=== PATIENT | female | born 1935 | race Caucasian/White ===

== ENCOUNTER 2018-01-22 16:20 | Inpatient (IN) ==
[2018-01-22] MEDS ORDERED: NS 1,000 ML IV ONE ×2 (16:34→17:48)
--- OUTSIDE RECORDS SUMMARY | 2018-01-22 16:40 | External Medical Summary | Referral Summary ---
:1935 Author Organization [facility] Address [address] [place] [address] [place] [id number] Care Team Providers Name Role Phone Devendra Gomez Primary Care Physician Encounter VC Date(s): 12/31/16 - 12/31/16 [facility] [address] [place] [phone] [place] Discharge Disposition: 01-Home or Self Care Attending Physician: Devendra Gomez MD Admitting Physician: Devendra Gomez MD Vital Signs Most recent to oldest [Reference Range]: 1 Temperature Tympanic [36.6-38.1 degC] 37.2 degC (12/31/16 11:11 AM) Peripheral Pulse Rate [60-100 bpm] 63 bpm (12/31/16 11:11 AM) Blood Pressure [90-140/60-90 mmHg] 136/80 mmHg (12/31/16 11:11 AM) Problem List Condition Effective Dates Status Health Status Informant Radiculopathy of cervical Active spine(Confirmed) Compression fracture(Confirmed) Active Excessive daytime sleepiness/lack of 04/20/09 Active energy(Confirmed) DDD (degenerative disc disease), Active lumbosacral(Confirmed) Depression(Confirmed) Active skin conditions(Confirmed) Active 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 (disorder)(Confirmed) GERD (gastroesophageal reflux Active disease)(Confirmed) Low back pain (finding)(Confirmed) Active Lumbosacral spondylosis without Active myelopathy(Confirmed) Neck pain (finding)(Confirmed) Active Osteoarthritis(Confirmed) Active Osteoporosis(Confirmed) Active Parkinson's disease(Confirmed) Active Scoliosis(Confirmed) Active Spinal stenosis in cervical region Active (disorder)(Confirmed) Spinal stenosis of lumbar region Active (disorder)(Confirmed) Thoracic or lumbosacral neuritis or Active radiculitis, unspecified(Confirmed) Chicken pox(Confirmed) Active Difficulty in walking(Confirmed) Active Allergies, Adverse Reactions, Alerts No Known Medication Allergies Medications amantadine 100 mg oral capsule 1 caps, Oral, BID Start Date: 08/12/14 Status: OrderedamLODIPine 10 mg oral tablet 10 mg 1 tabs, Oral, BID, 1/2 tab or 5 mg daily, 0 Refill(s) Start Date: 07/16/16 Status: Orderedcarbidopa-levodopa 50 mg-200 mg oral tablet, extended release See Instructions, TAKE ONE TABLET BY MOUTH FIVE TIMES DAILY, # 150 unknown unit , 2 Refill(s), eRx: [facility] [id number], TAKING ONE TABLET BY MOUTH FIVE TIMES A DAY. 7AM, 9AM, NOON, 4PM AND 10PM. Start Date: 03/09/15 Status: OrderedColace 100 mg oral capsule 100 mg 1 caps, Oral, Daily, # 20 caps, 0 Refill(s) Start Date: 07/16/16 Status: OrderedDULoxetine 30 mg oral delayed release capsule See Instructions, TAKE 2 CAPSULE BY MOUTH EVERY DAY, # 60 tabs, 0 Refill(s), Pharmacy: [facility] [id number], TAKE 2 CAPSULE BY MOUTH EVERY DAY Start Date: 08/02/16 Status: Orderedlisinopril 10 mg oral tablet 10 mg 1 tabs, Oral, Daily, 0 Refill(s) Start Date: 07/16/16 Status: OrderedNorco 5 mg-325 mg oral tablet 1-2 tabs, Oral, q6hr, as needed for pain, Fax to [facility] [phone], # 60 tabs, 0 Refill(s) Start Date: 07/26/16 Status: Orderedomeprazole 20 mg oral delayed release capsule See Instructions, TAKE 1 CAPSULE BY MOUTH EVERY DAY, # 90 caps, eRx: [facility] [id number] Start Date: 12/30/16 Status: OrderedProlia 60 mg/mL subcutaneous solution 60 mg, SubCutaneous, q6mo, # 1 mL, 0 Refill(s), other reason (Rx) Start Date: 12/08/15 Stop Date: 12/07/16 Status: OrderedSenna Plus 50 mg-8.6 mg oral tablet 2 tabs, Oral, BID, 0 Refill(s) Start Date: 07/16/16 Status: OrderedZofran ODT 4 mg oral tablet, disintegrating 4 mg 1 tabs, Oral, q4hr, Nausea or Vomiting | as needed for nausea/vomiting, # 10 tabs, 0 Refill(s),other reason (Rx) Start Date: 07/18/16 Status: Ordered Results No data available for this section Immunizations Given and Recorded Vaccine Date Status Refusal Reason influenza virus vaccine, inactivated 10/03/15 Recorded influenza virus vaccine, live 08/20/12 Given zoster vaccine live 08/03/07 Recorded Procedures Procedure Date Related Diagnosis Body Site Intramedullary nailing of femur1 07/10/16 right L4-5/L5-S1 transforaminal 07/15/13 Rt L4-5/L5-S1 transforaminal 03/30/13 Rt L4-5/L5-S1 transforaminal 12/22/12 hydrodistention 06/26/12 S/P cystoscopy 06/26/12 SLT laser vaporization 06/26/12 urethral calibration and dilation 06/26/12 S/P colonoscopy2 07/27/03 Hysterectomy S/P bilateral cataract extraction S/P tonsillectomy and adenoidectomy 1Right hip intramedullary nailing for three-part intertrochanteric hip [id number] Social History Social History Type Response Smoking Status Never smoker Assessment and Plan No data available for this section"
--- OUTSIDE RECORDS SUMMARY | 2018-01-22 16:40 | External Medical Summary | Continuity of Care Document ---
:1935 Author Organization [facility] Care Team Providers Name Role Phone [employer] Unavailable Unavailable
[2018-01-22] MEDS ORDERED: CEFTRIAXONE (ER USE ONLY) 1 GM in NS 100 ML IV ONE (18:22)
--- NOTE | 2018-01-22 18:45 | Emergency Department Report ---
General Adult HPI - General Chief complaint: Shortness of Breath/Dyspnea Stated complaint: difficulty breathing Time Seen by Provider: 01/22/18 16:27 - History of Present Illness HPI narrative: 82-year-old female brought in by EMS for acute dyspnea. Patient has been on hospice and has DO NOT RESUSCITATE orders. Hospice nurse was at home with the patient and son and father both insisted she be brought in for evaluation. EMS discussed with them that there was a DO NOT RESUSCITATE and the patient had desires not to have any intervention not just DO NOT RESUSCITATE, but family was concerned. Therefore patient was transported ER. She has history of Parkinson's which is severe and is been immovable in bed for the last 3-4 days. She required 90% O2 on nonrebreather during transport to maintain sats greater than 88%. She has not seen a medical provider for the last month at least. There is some question as to who her actual primary care provider is. She is nonverbal and does not communicate with us at all. - Related Data Home Medications Medication Instructions Recorded Confirmed Docusate Sodium [Stool Softener] 100 mg PO HS #0 07/10/16 01/22/18 Amlodipine [Norvasc] 5 mg PO BID 09/30/17 01/22/18 Carbidopa/Levodopa CR 50/200Mg 1 tab PO QID 09/30/17 01/22/18 [Sinemet Cr] Hyoscyamine Drops [Levsin] 0.125 mg PO QID PRN 09/30/17 01/22/18 Lisinopril [Prinivil] 10 mg PO DAILY 09/30/17 01/22/18 Sennosides [Senna] 2 tab PO BID 09/30/17 01/22/18 Duloxetine HCl 30 mg PO BID 01/22/18 01/22/18 Meloxicam 7.5 mg PO HS 01/22/18 01/22/18 Previous Rx's Medication Instructions Recorded Hydrocodone/APAP 5/325 [Winter 1 - 2 tab PO Q6H PRN #20 09/30/17 5/325] Allergies Allergy/AdvReac Type Severity Reaction Status Date / Time No Known Allergies Allergy Verified 01/22/18 16:56 Review of Systems Limitations: ROS unobtainable due to patient's medical condition PFS Patient Stated Medical History Parkinson's Disease Yes Other HEENT Yes: wears glasses Hypertension Yes Other Musculoskeletal Yes: right hip fx Surgical History: unknown - Social History Smoking status: Former smoker Substance use type: does not use Current occupational status: retired Physical Exam - Limitations Limitations: altered mental status - General General appearance: obtunded, cachectic - Normal Exams: Eyes:: No scleral icterus, irritation, or foreign bodies noted Abdomen:: Bowel sounds positive, soft, non-tender, non-distended, no hepatosplenomegaly, masses or bruits noted - Respiratory Respiratory exam: Present: crackles (right side greater than left) - Cardiovascular Cardiovascular exam: Present: tachycardia - Neurological Exam Neurological exam: Present: other (unable to evaluate, patient is nonresponsive) . Absent: alert, oriented X3 - Psychiatric Psychiatric exam: Present: other (patient nonresponsive.) Course Vital Signs Pulse Rate 143 H 01/22/18 16:20 Respiratory Rate 44 H 01/22/18 16:20 Pulse Oximetry 92 01/22/18 16:20 Temperature 101.9 F H 01/22/18 16:25 Pulse Rate 123 H 01/22/18 17:16 Respiratory Rate 41 H 01/22/18 17:16 Blood Pressure 154/127 H 01/22/18 17:16 Pulse Oximetry 90 01/22/18 17:00 Medical Decision Making - [facility] Narrative Medical decision making narrative: Patient presented with a heart rate of 140, given 1 L bolus of normal saline immediately on arrival and rate diminished to 118. With another 1 L of fluid, heart rate is decreased to 108. Sepsis workup initiated. However patient has active DO NOT RESUSCITATE with hospice report that she wanted no intervention whatsoever. No family was present initially while workup was begun. Initial lactate returned at 4.8, THIS WAS AN ERROR. Blood and sat and was run latent, immediate redraw was ordered and lactate was 2.8. Returned at greater than 16 with 18 bands. Patient's BUN is 61 with creatinine of 2.1. Sodium 161. I spoke with Dr. Delarosa, to attempt to resolve the treatment question. Ultimately we decided that patient will be admitted to treat the infection, definitely states DO NOT RESUSCITATE. I discussed with the patient's son that we are unlikely to have success due to the severity of infection and hypernatremia as well as other underlying pre-existing conditions. This was discussed with Dr. Terry, who is on-call for tele-hospitalist. He agreed to admit the patient. Patient is placed on Rocephin and Zithromax. We did add influenza nasal swab. DO NOT RESUSCITATE is certified. Patient was also changed to LR at 100 at ml per hour. A total of 30 mL/kg and has bolus was accomplished. I spent greater than 45 minutes in critical care of this patient with fluid resuscitation, sepsis management, consult with other physicians immediate with family. - Lab Data Result diagrams: 01/22/18 16:32 01/22/18 16:32 Lab Results 01/22/18 01/22/18 01/22/18 Range/Units 16:32 16:32 16:50 WBC 16.2 H (4.5-11.0) T/MM3 RBC 4.78 (4.00-5.20) M/MM3 Hgb 13.8 (12-16) GM/DL Hct 44.5 (36-46) % MCV 93.1 (80-100) UM3 MCH 28.9 (26-34) UUG MCHC 31.0 (31-37) GM/DL RDW Std Deviation 45.1 (36.9-50.2) FL Plt Count 542 H (130-400) T/MM3 MPV 9.9 (9.4-12.4) UM3 Immature Gran % (Auto) Not performed Neut % (Auto) Not performed Lymph % (Auto) Not performed Marshall % (Auto) Not performed Eos % (Auto) Not performed Baso % (Auto) Not performed Neut # (Auto) Not performed Lymph # (Auto) Not performed Marshall # (Auto) Not performed Eos # (Auto) Not performed Baso # (Auto) Not performed Abs Immat Gran (auto) Not performed Neutrophils % (Manual) 63.0 (33-66) % Band Neutrophils % 18.0 H (0-6) % Lymphocytes % (Manual) 11.0 L (23-45) % Monocytes % (Manual) 8.0 (0-9.0) % Neutrophils # (Manual) 10.2 H (1.8-7.7) T/MM3 Band Neutrophils # 2.9 T/MM3 Lymphocytes # (Manual) 1.8 (1-4.8) T/MM3 Monocytes # (Manual) 1.3 H (0-0.8) T/MM3 Nucleated RBCs 1 RBC Morph Comment Normal Turbidity < 20 (0-20) Sodium 161 H* (134-144) MEQ/L Potassium 3.8 (3.6-5) MEQ/L Chloride 119 H (98-107) MEQ/L Carbon Dioxide 20 L (22-30) MEQ/L Anion Gap 22 H (5-15) meq/L BUN 61.0 H* (7-17) MG/DL Creatinine 2.1 H (0.7-1.2) mg/dL GFR Calculation 23 BUN/Creatinine Ratio 29 H (6-26) RATIO Glucose 203 H (65-110) MG/DL Calculated Osmolality 331 H (261-280) MOSM/KG Calcium 9.6 (8.4-10.2) MG/DL Total Bilirubin 0.70 (0.20-1.30) MG/DL Icterus Index < 2 (0-7) AST 65 H (14-36) U/L ALT 16 (1-35) U/L Alkaline Phosphatase 158 H (38-126) U/L NT-Pro-B Natriuret Pep 3580 H (0-175) pg/mL Total Protein 8.0 (6.3-8.2) g/dL Albumin 4.1 (3.5-5.0) g/dL Globulin 3.9 H (2.4-3.6) G/DL Albumin/Globulin Ratio 1.1 (1.1-2.2) RATIO Plasma Lactate 4.8 H* 2.8 H (0.6-2.2) MMOL/L Specimen Hemolysis < 15 (0-25) - Radiology Data Radiology results reviewed: Yes: I reviewed the patient's radiology results. Disposition Clinical Impression: Pneumonia, Sepsis, Hypernatremia [place]position: 02 [place] [facility] Condition: Stable Prescriptions: No Action Docusate Sodium [Stool Softener] 100 mg PO HS #0 Carbidopa/Levodopa CR 50/200Mg [Sinemet Cr] 1 tab PO QID Sennosides [Senna] 2 tab PO BID Lisinopril [Prinivil] 10 mg PO DAILY Hyoscyamine Drops [Levsin] 0.125 mg PO QID PRN PRN Reason: Prn Orders Amlodipine [Norvasc] 5 mg PO BID Hydrocodone/APAP 5/325 [Winter 5/325] 1 - 2 tab PO Q6H PRN #20 PRN Reason: Pain Duloxetine HCl 30 mg PO BID Meloxicam 7.5 mg PO HS Referrals: Sandra Delarosa MD [Family Provider] - Time of Disposition: 19:14 - Seen By: physician
[2018-01-22] MEDS ORDERED: AZITHROMYCIN IV 500 MG in NS 250ml 250 ML IV SCH (19:15)
[2018-01-22] MEDS: LR 1,000 ML IV SCH (19:26)
--- NOTE | 2018-01-22 20:04 | History & Physical Report ---
History of Present Illness Date: 01/23/18 Chief complaint: decreased responsiveness, shortness of breath HPI: Mrs. Robledo is an 82 y/o w/ severe Parkinson's, HTN, arthritis and other medical issues who is currently cared for at home by her family as well as home hospice who is brought in by EMS today d/t decreasing responsiveness and shortness of breath. The patient was seen by hospice nurse today, and she was unresponsive and apparently not out of bed since Friday and not taking po, and patient's son and desired that EMS be contacted and that patient be transported to the ED at [facility] for evaluation. Patient in ER had temp of 101.6 F, tachycardic w/ HR in the 140s, lactate of 2.8 , Na = 161, BUN/Cr = 61/2.1, WBC =16.2 and Influenza pending; NS x 2 L given, and CXR showed likely bilateral lower lobe pneumonia so Rocephin and Azithromycin IV given in ER. Per ER physician's report, patient has a DNR and will remain a DNR per patient's family's request however patient's family would like for the pneumonia to be treated and patient to be admitted to the hospital. Patient on oxygen therapy as she was noted to be hypoxic. Currently 6 L/min HF NC place over the mouth as she is a mouth breather. Patient's fluids were changed from NS to LR which is running currently at 100 cc /hour. Patient to be admitted to the Hospitalist service for further evaluation and management. History obtained from ER physician and notes, as patient is minimally responsive and patient's family left the ER to return home once patient was accepted to the medical floor. Review of Systems ROS unobtainable: due to mental status Past Medical History Medical History Updates: HTN, arthritis, purported End-stage Parkinson's, contractures Surgical History: unknown Family History: Unable to Obtain - Social History Smoking status: Former smoker Medications Home Medications Medication Instructions Recorded Confirmed Type Docusate Sodium [Stool Softener] 100 mg PO HS #0 07/10/16 01/22/18 History Amlodipine [Norvasc] 5 mg PO BID 09/30/17 01/22/18 History Carbidopa/Levodopa CR 50/200Mg 1 tab PO QID 09/30/17 01/22/18 History [Sinemet Cr] Hydrocodone/APAP 5/325 [[place] 1 - 2 tab PO Q6H PRN #20 09/30/17 01/22/18 Rx 5/325] Hyoscyamine Drops [Levsin] 0.125 mg PO QID PRN 09/30/17 01/22/18 History Lisinopril [Prinivil] 10 mg PO DAILY 09/30/17 01/22/18 History Sennosides [Senna] 2 tab PO BID 09/30/17 01/22/18 History Duloxetine HCl 30 mg PO BID 01/22/18 01/22/18 History Meloxicam 7.5 mg PO HS 01/22/18 01/22/18 History Allergies Allergy/AdvReac Type Severity Reaction Status Date / Time No Known Allergies Allergy Verified 01/22/18 16:56 Exam Vital Signs: Temperature 101.9 F H 01/22/18 16:25 Pulse Rate 123 H 01/22/18 17:16 Respiratory Rate 41 H 01/22/18 17:16 Blood Pressure 154/127 H 01/22/18 17:16 Pulse Oximetry 90 01/22/18 17:00 Telemetry Rhythm: Sinus Tachycardia Height/Weight/BMI: Height 1.57 m Weight 49.8 kg - Constitutional Present: cachectic, somnolent Comments: Patient minimally responsive - does not open eyes but does blink and moves slightly to tactile stimulation - Routine HEENT Exam Head: Present: atraumatic ENT: Present: mucous membranes dry - Routine Neck Exam Absent: JVD - Routine Respiratory Exam Present: decreased breath sounds, prolonged expiratory phase, crackles (at the bases bilaterally) - Routine Cardiovascular Exam Present: tachycardia - Routine Abdominal Exam Present: non distended - Routine Extremities Exam Absent: cyanosis, clubbing, edema - Routine Psychiatric Exam Present: unable to assess Comments: Patient's neck chronically in extension and to the left Results - Labs CBC & Chem 7: 01/23/18 05:08 01/23/18 05:08 Microbiology Results: Microbiology 01/22/18 16:53 Midline Blood Culture - Preliminary Culture Initiated - Results Pending 01/22/18 16:50 Midline Blood Culture - Preliminary Culture Initiated - Results Pending Assessment and Plan Assessment and Plan: Assessment: 1) Acute Sepsis POA 2) Acute Bilateral Pneumonia 3) Acute Hypoxia 4) Acute Encephalopathy - currently unresponsive - has been at home prior to presentation to ER 5) Acute Kidney injury in setting of CKD 6) Hypernatremia - likely acute dehyration w/ poor free water intake over past week or more 7) Severe Parkinson's disease - was on home hospice - however patient's family desires treatment of pneumonia and hospitalization 8) HTN history 9) H/o Arthritis / Contractures Plan: Admit to Hospitalist service Received 30 cc/kg bolus of NS - now fluids changed to LR running at 100 cc/hour Labs in the AM Oxygen therapy to keep sats > 90% RT consult Social Work consult Patient remains DNR Blood Cultures pending SCDs Rocephin 1gram IV q 24 hours Azithromycin 500mg IV q 24 hours Protonix 40mg IV q 24 hours Tylenol suppository prn as directed MSO4 prn as directed NPO - o/p swabs if needed DVT Prophylaxis: SCD's GI Prophylaxis: Protonix Resuscitation Status: Do Not Resuscitate - Physician Narrative Physician: Barb Blanton MD Narrative: Date: 01/23/18 Time: 1350 CC: Patient brought to the emergency room due to decreased responsiveness and increase worker breathing. HPI: 82y/o female who has severe Parkinson's and has been living at home with her and son under the care of hospice services. The hospice nurse was in the home with the family. The and son were quite worried about the patient and insisted that she be seen in the ER for further evaluation. In the emergency room she required at least 10 L by mask to maintain adequate oxygenation. Her chest x-ray showed increasing right pleural effusion with basilar airspace disease. There was a hazy infiltrate in the left base. Pneumonia could also not be excluded on the right side. She had leukocytosis and 16,200 with 18% bands, her sodium was 161 with the UN of 61 and a creatinine 2.1. she was negative for influenza a and B. Urine analysis was unremarkable. Have seen her twice today. Initially this morning it was no family available. She did not respond to me at all. This afternoon I return to her room and her son was present. She does follow most commands including bilateral handgrip. She will wiggle her toes. She will not however take a deep breath when I asked. She is non verbal. She will not yes and no and denies any significant complaints at this time. Her son was concerned that we are not feeding her. When I asked her if she was hungry she did not respond at all. He reports that he does not let her make that decision and he will just give her stuff to eat. Complain to him that if she is not participating in this eating then she is at risk of aspirating. I'm not sure he understands goals of care of hospice. She is still requiring 10 L via mask. She does have IV fluids running which I will stop at this time due to her right pleural effusion. Past medical history: Current medications: Sinemet CR 1 tablet QID Norvasc 5 mg BID Dolculax sodium 100 mg QHS duloxetine 30 mg BID Cleveland 5 mg 1 to 2 tablets Q6 hours PRN Levsin drops 0.125mg QID lisinopril 10 mg daily meloxicam 7.5 mg QHS senna 8.6 mg 2 tablets BID Allergies: no known drug allergies Medical history: severe Parkinson's lumbosacral spondylosis history of compression fracture L4 gastroesophageal reflux disease cataracts osteoarthritis osteoporosis hypertension constipation chronic pain frequent falls Surgical history: foot surgery as a Child hysterectomy cataract removal cystoscopy tonsillectomy and adenoidectomy right hip intramedullary nail Family history: mom and dad are both . Dad had problems with alcohol abuse Social history: and living with her under hospice care Former smoker ROS: Essentially Unobtainable Physical Exam: VSS: temperature 99.1, heart rate 98, respiration rate 14 with shallow respirations, blood pressure 114/65, 97% on 10 L by simple mask. Gen: awakens. Follows most commands. Non verbal Skin: warm and dry. HEENT: NC/AT PERRL, EOMI, sclera, lids and conjunctiva wnl. MMM. OP clear. Neck: Fairly rigid, No JVD, Carotids 2+ without bruits. Lungs: diminished. crackles on right. No wheezes or rhonchi Heart: regular. No murmur, rub or gallop. Abdomen: soft. NT/ND, +BS MS: Generalized muscle weakness, No edema Neuro: No apparent focal deficit but difficult to test Psy: Flat affect Assessment/Plan: 1) Acute Sepsis -Leukocytosis with bandemia, elevated lactic acid at 4.8 (trended down to 1.2 by am) -Blood cx pending 2) Acute Bilateral Pneumonia -On Rocephin and azithromycin IV -Resp therapy -Sputum cx if she can provide one -Repeat CXR in am 3) Acute Hypoxia -Likely due to effusion and PNA -STop IVF and titrate oxygen as needed -Resp therapy 4) Acute Encephalopathy - currently unresponsive - has been at home prior to presentation to ER -Multifactorial, pt with severe parkinson's. 5) Acute Kidney injury in setting of CKD -Likely dehydration -IVF given -Repeat labs in am. 6) Hypernatremia -likely acute dehyration w/ poor free water intake over past week or more 7) Severe Parkinson's disease - was on home hospice - however patient's family desires treatment of pneumonia and hospitalization -Continue her home meds if she will take po 8) HTN history -BP low normal here, hold home antihypertensives at this time 9) H/o Arthritis / Contractures 10)Prophylaxis -PPI, SCDs Hospital Course Summary Disclaimer: The visit summary below is not to be considered part of the above Progress Note.
[2018-01-22] MEDS ORDERED: MORPHINE SULFATE 2mg INJ IVP PRN (20:05)
[2018-01-22] MEDS ORDERED: ALBUTEROL 2.5mg/3ml (0.083%) NEB AEROSOL PRN (21:14)
[2018-01-23] MEDS: ACETAMINOPHEN 650 MG SUPPOSITORY PR PRN (03:07)
[2018-01-23] MEDS: LR 1,000 ML IV SCH (06:56)
[2018-01-23] MEDS: PANTOPRAZOLE 40 MG INJECTION IVP SCH (09:12)
--- NOTE | 2018-01-23 09:51 | XRay Report ---
Indication: dyspnea PROCEDURE: XR chest 1V: Encounter: Initial Comparison: July 22, 2016 Findings: Increasing right pleural effusion with right lower lobe airspace disease. There is new hazy infiltrate in the left lung base as well. No pneumothorax. Patient is rotated towards the right. Heart size is within normal limits. Impression: Increasing right pleural effusion with basilar airspace disease. Pneumonia cannot be excluded. .
[2018-01-23] MEDS: ALBUTEROL 2.5mg/3ml (0.083%) NEB AEROSOL SCH (13:09)
[2018-01-23] MEDS ORDERED: HYOSCYAMINE 0.125 MG/ML PO PRN (17:28)
[2018-01-23] MEDS ORDERED: HYDROCODONE/APAP 5mg/325mg TABLET PO PRN (17:28)
[2018-01-23] MEDS: CEFTRIAXONE 1 G in NS 100 ML IV SCH (18:58)
[2018-01-23] MEDS: SALINE FLUSH 10ml SYRINGE IVF PRN (18:58)
[2018-01-23] MEDS: AZITHROMYCIN IV 500 MG in NS 250ml 250 ML IV SCH (21:36)
[2018-01-23] MEDS: DULOXETINE 30 MG CAPSULE PO SCH (21:38)
[2018-01-23] MEDS: SENNOSIDES 8.6 MG TABLET PO SCH (21:38)
[2018-01-23] MEDS: DOCUSATE SODIUM 100 MG CAPSULE PO SCH (21:38)
[2018-01-24] MEDS: DULOXETINE 30 MG CAPSULE PO SCH ×2 (08:34→23:53)
[2018-01-24] MEDS: PANTOPRAZOLE 40 MG INJECTION IVP SCH (08:38)
[2018-01-24] MEDS: SENNOSIDES 8.6 MG TABLET PO SCH ×2 (08:38→23:53)
[2018-01-24] MEDS: SALINE FLUSH 10ml SYRINGE IVF PRN ×2 (08:39→14:17)
[2018-01-24] MEDS: ALBUTEROL/IPRATROPIUM 2.5mg-0.5mg/3ml NEB AEROSOL SCH ×3 (11:04→19:41)
--- NOTE | 2018-01-24 13:30 | Progress Note ---
- Date 01/24/18 Subjective: F/U: Septic shock, pneumonia Resting in bed. Not responsive-nonverbal. Breathing comfortably on O2 without labor. Objective Vital signs: Temperature 100.5 F H 01/24/18 11:21 Pulse Rate 98 01/24/18 11:21 Respiratory Rate 24 01/24/18 11:21 Blood Pressure 106/64 01/24/18 11:21 Pulse Oximetry 100 01/24/18 11:21 Height/Weight/BMI: Height 1.57 m Weight 50.8 kg Body Mass Index 20.6 - Constitutional Present: well nourished, well developed, average body habitus, somnolent - Routine HEENT Exam Head: Present: normocephalic, atraumatic Eye: Present: EOMI, PERRL - Routine Respiratory Exam Present: decreased breath sounds. Absent: respiratory distress - Routine Cardiovascular Exam Present: RRR, no murmur - Routine Abdominal Exam Present: soft, non distended, non tender. Absent: normoactive bowel sounds - Routine Extremities Exam Present: no edema, pulses intact. Absent: cyanosis, clubbing - Routine Musculoskeletal Exam Musculoskeletal: Present: no clubbing or cyanosis - Routine Skin Exam Present: dry, warm - Routine Neurological Exam Somnolent - Routine Psychiatric Exam Comments: Somnolent Results - Labs CBC & Chem 7: 01/24/18 04:33 01/24/18 04:33 Assessment and Plan Assessment and Plan: Assessment Sepsis shock POA Bilateral Pneumonia Acute Hypoxia Acute Encephalopathy - currently unresponsive - has been at home prior to presentation to ER Acute Kidney injury in setting of CKD Hypernatremia (POA) - likely acute dehydration w/ poor free water intake over past week or more Severe Parkinson's disease - was on home hospice - however patient's family desires treatment of pneumonia and hospitalization HTN history H/o Arthritis / Contractures Plan Sodium increasing - will start 1/2NS at 100cc/hr for hydration and to improve serum sodium. Continue Rocephin 1gram IV q 24 hours and azithromycin 500mg IV q 24 hours for pulmonary coverage. Supportive O2 as needed. MS for pain. DVT Prophylaxis: SCD's Resuscitation Status: Do Not Resuscitate - Physician Narrative Physician: Edgar Hilario MD Narrative: Date: 01/24/18 Time: 1327 Hospital Course Summary Disclaimer: The visit summary below is not to be considered part of the above Progress Note. Hospital Course: 01/23/18 Admit to Hospitalist service Received 30 cc/kg bolus of NS - now fluids changed to LR running at 100 cc/hour Labs in the AM Oxygen therapy to keep sats > 90% RT consult Social Work consult Patient remains DNR Blood Cultures pending SCDs Rocephin 1gram IV q 24 hours Azithromycin 500mg IV q 24 hours Protonix 40mg IV q 24 hours Tylenol suppository prn as directed MSO4 prn as directed NPO - o/p swabs if needed 01/24/18
[2018-01-24] MEDS: 1/2 NS 1,000 ML IV SCH (14:17)
[2018-01-24] MEDS: ACETAMINOPHEN 650 MG SUPPOSITORY PR PRN (14:24)
[2018-01-24] MEDS: CEFTRIAXONE 1 G in NS 100 ML IV SCH (18:01)
[2018-01-24] MEDS: AZITHROMYCIN IV 500 MG in NS 250ml 250 ML IV SCH (23:51)
[2018-01-24] MEDS: DOCUSATE SODIUM 100 MG CAPSULE PO SCH (23:53)
[2018-01-25] MEDS: 1/2 NS 1,000 ML IV SCH ×2 (02:05→11:27)
[2018-01-25] MEDS: ALBUTEROL/IPRATROPIUM 2.5mg-0.5mg/3ml NEB AEROSOL SCH ×4 (07:54→19:04)
[2018-01-25] MEDS: DULOXETINE 30 MG CAPSULE PO SCH ×2 (09:59→21:41)
[2018-01-25] MEDS: SENNOSIDES 8.6 MG TABLET PO SCH ×2 (09:59→21:41)
[2018-01-25] MEDS: SALINE FLUSH 10ml SYRINGE IVF PRN (10:01)
[2018-01-25] MEDS: PANTOPRAZOLE 40 MG INJECTION IVP SCH (10:01)
--- NOTE | 2018-01-25 10:12 | XRay Report ---
Indication: PNA PROCEDURE: XR chest 1V: Encounter: Initial Comparison: January 22, 2018 Findings: Continued airspace consolidation in the right lower lobe with increasing small right pleural effusion. Hazy opacities in the left lower lobe are grossly stable. No pneumothorax. Heart size and mediastinal contours are stable allowing for differences in rotation. Impression: Increasing right effusion. .
[2018-01-25] MEDS: D5W 1,000 ML IV SCH ×2 (10:35→21:40)
--- NOTE | 2018-01-25 10:48 | Progress Note ---
- Date 01/25/18 Subjective: Shantal is seen today in follow up. She is laying in bed with eyes closed. She does not arouse to verbal stimulation or touch. She continues on 0.5-1 liter of oxygen by nasal canula and does not appear to be in any distress. She remains afebrile and blood pressure has been normal. Objective Vital signs: Temperature 98.2 F 01/25/18 07:46 Pulse Rate 98 01/25/18 07:46 Respiratory Rate 16 01/25/18 07:55 Blood Pressure 125/67 01/25/18 07:46 Pulse Oximetry 96 01/25/18 10:02 Height/Weight/BMI: Height 1.57 m Weight 52.6 kg Body Mass Index 20.6 - Constitutional Present: thin - Routine HEENT Exam ENT: Present: mucous membranes dry - Routine Respiratory Exam Present: diminished air movement - Routine Cardiovascular Exam Present: RRR, S1, S2. Absent: murmur - Routine Abdominal Exam Present: soft, normoactive bowel sounds, non distended. Absent: tenderness - Routine Skin Exam Present: intact, dry, warm - Routine Neurological Exam Present: altered mental status - Routine Lymphatic Exam Lymphatic: Absent: adenopathy - Routine Psychiatric Exam Present: unable to assess Results - Labs CBC & Chem 7: 01/25/18 04:29 01/25/18 04:29 Assessment and Plan Assessment and Plan: Assessment Sepsis shock POA Bilateral Pneumonia Acute Hypoxia Acute Encephalopathy - currently unresponsive - has been at home prior to presentation to ER Acute Kidney injury in setting of CKD Hypernatremia (POA) - likely acute dehydration w/ poor free water intake over past week or more Severe Parkinson's disease - was on home hospice - however patient's family desires treatment of pneumonia and hospitalization HTN history H/o Arthritis / Contractures Plan Persistent Hypernatremia despite IV fluids Change fluid to D5W at 100ml/hr Continue with Rocephin and Azithromycin for antimicrobial coverage Continues therapeutic NPO Overall status is concerning. Likely need to discuss half-way plan with family. Possibly need to return to hospice/comfort care. DVT Prophylaxis: SCD's Resuscitation Status: Do Not Resuscitate - Time spent with patient Time with patient PN: 25 minutes - Physician Narrative Physician: Edgar Hilario MD Narrative: Date: 01/25/18 Time: 1455 Have independently interviewed and examined pt. Chart reviewed. Case discussed with nursing, pt's , and my PAINTER [employer]. Care plan developed with my supervision ; agree with above. Resting in bed. Not opening eyes, non verbal. WBC without significant decrease, sodium still elevated at 159. Lungs: decreased, shallow respirations CV: regular AB: soft flat BS decreased EXT: thin Plan: Continue IV antibiotics. Change IVF to D5W as sodium not decreasing. Speech for swallow function. Monitor lab. Overall prognosis not favorable. Hospital Course Summary Disclaimer: The visit summary below is not to be considered part of the above Progress Note. Hospital Course: 01/23/18 Admit to Hospitalist service Received 30 cc/kg bolus of NS - now fluids changed to LR running at 100 cc/hour Labs in the AM Oxygen therapy to keep sats > 90% RT consult Social Work consult Patient remains DNR Blood Cultures pending SCDs Rocephin 1gram IV q 24 hours Azithromycin 500mg IV q 24 hours Protonix 40mg IV q 24 hours Tylenol suppository prn as directed MSO4 prn as directed NPO - o/p swabs if needed 01/24 Sodium increasing - will start 1/2NS at 100cc/hr for hydration and to improve serum sodium. Continue Rocephin 1gram IV q 24 hours and azithromycin 500mg IV q 24 hours for pulmonary coverage. Supportive O2 as needed. MS for pain. 01/25 Persistent Hypernatremia despite IV fluids - Change fluid to D5W at 100ml/hr Continue with Rocephin and Azithromycin for antimicrobial coverage Continues therapeutic NPO Overall status is concerning. Likely need to discuss half-way plan with family. Possibly need to return to hospice/comfort care
[2018-01-25] MEDS: Hyoscyamine 0.125mg Sublingual tab PO PRN ×2 (11:21→17:34)
[2018-01-25] MEDS: NS FLUSH BAG 500ml IV PRN (18:09)
[2018-01-25] MEDS: CEFTRIAXONE 1 G in NS 100 ML IV SCH (18:09)
[2018-01-25] MEDS: AZITHROMYCIN IV 500 MG in NS 250ml 250 ML IV SCH (21:40)
[2018-01-25] MEDS: DOCUSATE SODIUM 100 MG CAPSULE PO SCH (21:41)
[2018-01-26] MEDS: ALBUTEROL/IPRATROPIUM 2.5mg-0.5mg/3ml NEB AEROSOL SCH ×4 (07:29→19:35)
[2018-01-26] MEDS: D5W 1,000 ML IV SCH ×2 (09:37→20:42)
[2018-01-26] MEDS: PANTOPRAZOLE 40 MG INJECTION IVP SCH (09:37)
[2018-01-26] MEDS: SALINE FLUSH 10ml SYRINGE IVF PRN ×3 (09:38→18:07)
[2018-01-26] MEDS: SENNOSIDES 8.6 MG TABLET PO SCH ×2 (09:38→20:54)
[2018-01-26] MEDS: DULOXETINE 30 MG CAPSULE PO SCH ×2 (09:38→20:54)
--- NOTE | 2018-01-26 11:23 | Progress Note ---
- Date 01/26/18 Subjective: Shantal is seen this morning while laying in bed. She does arouse and says "hi" during examination however does not make eye contact. She continues on 1 liter of oxygen by n/c. Remains mostly non-verbal. Objective Vital signs: Temperature 98.8 F 01/26/18 07:36 Pulse Rate 89 01/26/18 07:36 Respiratory Rate 26 H 01/26/18 07:36 Blood Pressure 133/80 01/26/18 07:36 Pulse Oximetry 96 01/26/18 11:00 Height/Weight/BMI: Height 1.57 m Weight 51.5 kg Body Mass Index 20.6 - Constitutional Present: mild distress, well nourished, well developed - Routine HEENT Exam ENT: Present: mucous membranes dry - Routine Respiratory Exam Present: CTA bilaterally, diminished air movement - Routine Cardiovascular Exam Present: RRR, S1, S2. Absent: murmur - Routine Abdominal Exam Present: soft, normoactive bowel sounds, non distended. Absent: tenderness - Routine Skin Exam Present: intact, dry, warm - Routine Neurological Exam Present: altered mental status - Routine Lymphatic Exam Lymphatic: Absent: adenopathy - Routine Psychiatric Exam Present: cooperative Results - Labs CBC & Chem 7: 01/26/18 04:35 01/26/18 04:35 Assessment and Plan Assessment and Plan: Assessment Sepsis shock POA Bilateral Pneumonia Acute Hypoxia Acute Encephalopathy - currently unresponsive - has been at home prior to presentation to ER Acute Kidney injury in setting of CKD Hypernatremia (POA) - likely acute dehydration w/ poor free water intake over past week or more Severe Parkinson's disease - was on home hospice - however patient's family desires treatment of pneumonia and hospitalization HTN history H/o Arthritis / Contractures Plan Sodium has begun to slightly trend down- 164 Continue with IV fluids for hydration- D5W Speech consult to evaluate swallow Continue with Rocephin and Azithromycin for pulmonary antimicrobial coverage Continue to follow labs- Leukocytosis is trending down- WBC 14.7 Wean O2 as able DVT Prophylaxis: SCD's Resuscitation Status: Do Not Resuscitate - Time spent with patient Time with patient PN: 25 minutes - Physician Narrative Physician: Edgar Hilario MD Narrative: Date: 01/26/18 Time: 1430 Have independently interviewed and examined pt. Chart reviewed. Case discussed with CM and my [employer]. Care plan developed with my supervision; agree with above. Somnolent. Not responding at this time. Breathing shallow. Sodium not improving. Oral intake essentially zero. Lungs: decrease, upper airway noises. Shallow breathing CV: regular EXT: thin , decrease muscle mass. Plan: Increase D5W secondary to elevated sodium. Continue antibiotics. With no significant improvement in status and patient being on hospice prior to admission, considerations for inpatient hospice care could be given. Discussed with CM in this regard. Hospital Course Summary Disclaimer: The visit summary below is not to be considered part of the above Progress Note. Hospital Course: 01/23/18 Admit to Hospitalist service Received 30 cc/kg bolus of NS - now fluids changed to LR running at 100 cc/hour Labs in the AM Oxygen therapy to keep sats > 90% RT consult Social Work consult Patient remains DNR Blood Cultures pending SCDs Rocephin 1gram IV q 24 hours Azithromycin 500mg IV q 24 hours Protonix 40mg IV q 24 hours Tylenol suppository prn as directed MSO4 prn as directed NPO - o/p swabs if needed 01/24 Sodium increasing - will start 1/2NS at 100cc/hr for hydration and to improve serum sodium. Continue Rocephin 1gram IV q 24 hours and azithromycin 500mg IV q 24 hours for pulmonary coverage. Supportive O2 as needed. MS for pain. 01/25 Persistent Hypernatremia despite IV fluids - Change fluid to D5W at 100ml/hr Continue with Rocephin and Azithromycin for antimicrobial coverage Continues therapeutic NPO Overall status is concerning. Likely need to discuss assistant terminal manager plan with family. Possibly need to return to hospice/comfort care 01/26 Sodium has begun to slightly trend down- 164 Continue with IV fluids for hydration- D5W Speech consult to evaluate swallow Continue with Rocephin and Azithromycin for pulmonary antimicrobial coverage Continue to follow labs- Leukocytosis is trending down- WBC 14.7 Wean O2 as able
[2018-01-26] MEDS: ACETAMINOPHEN 650 MG SUPPOSITORY PR PRN (11:53)
[2018-01-26] MEDS: MORPHINE SULFATE 4mg INJECTION IVP PRN (18:07)
[2018-01-26] MEDS: CEFTRIAXONE 1 G in NS 100 ML IV SCH (18:09)
[2018-01-26] MEDS: AZITHROMYCIN IV 500 MG in NS 250ml 250 ML IV SCH (20:47)
[2018-01-26] MEDS: DOCUSATE SODIUM 100 MG CAPSULE PO SCH (20:53)
[2018-01-26] MEDS: Hyoscyamine 0.125mg Sublingual tab PO PRN (23:31)
[2018-01-27] MEDS: ALBUTEROL/IPRATROPIUM 2.5mg-0.5mg/3ml NEB AEROSOL SCH ×4 (07:38→19:04)
[2018-01-27] MEDS: D5W 1,000 ML IV SCH (08:51)
[2018-01-27] MEDS: ACETAMINOPHEN 650 MG SUPPOSITORY PR PRN ×2 (08:52→22:34)
[2018-01-27] MEDS: DULOXETINE 30 MG CAPSULE PO SCH ×2 (08:52→21:18)
[2018-01-27] MEDS: SENNOSIDES 8.6 MG TABLET PO SCH ×2 (08:52→21:18)
[2018-01-27] MEDS: PANTOPRAZOLE 40 MG INJECTION IVP SCH (08:52)
--- NOTE | 2018-01-27 16:08 | Progress Note ---
- Date 01/27/18 Subjective: F/U: Severe sepsis, pneumonia Resting in bed. Will blink eyes. No verbal interaction. No oral intake. Maintaining saturations on 1L O2. Objective Vital signs: Temperature 98.4 F 01/27/18 15:26 Pulse Rate 86 01/27/18 15:26 Respiratory Rate 24 01/27/18 15:26 Blood Pressure 130/72 01/27/18 15:26 Pulse Oximetry 97 01/27/18 15:26 Height/Weight/BMI: Height 1.57 m Weight 53 kg Body Mass Index 20.7 - Constitutional Present: well nourished, well developed, thin, obtunded - Routine HEENT Exam Head: Present: normocephalic, atraumatic Eye: Present: EOMI, PERRL ENT: Present: mucous membranes dry - Routine Respiratory Exam Present: decreased breath sounds. Absent: respiratory distress - Routine Cardiovascular Exam Present: RRR, no murmur - Routine Abdominal Exam Present: soft, non distended, non tender. Absent: normoactive bowel sounds ( decreased) - Routine Extremities Exam Present: pulses intact. Absent: cyanosis, clubbing - Routine Skin Exam Present: warm. Absent: dry ([place]) - Routine Neurological Exam Somnolent - Routine Psychiatric Exam Comments: Somnolent Results - Labs CBC & Chem 7: 01/27/18 04:33 01/27/18 04:33 Assessment and Plan Assessment and Plan: Assessment Severe sepsis Bilateral Pneumonia Acute Hypoxia Acute Encephalopathy - currently unresponsive - has been at home prior to presentation to ER Acute Kidney injury in setting of CKD Hypernatremia (POA) - likely acute dehydration w/ poor free water intake over past week or more Severe Parkinson's disease - was on home hospice - however patient's family desires treatment of pneumonia and hospitalization HTN history H/o Arthritis / Contractures Plan Met with Hospice nurses, CM/SW from [facility] [place] and family about care goals. Family in process of processing options. Sodium with decrease to 156 and potassium decreased to 3.0. Renal status improved. Will change IVF to D5W with 20 KCl at 100cc/hr. WBC with slight decrease to 14.0. Continue Rocephin but could stop azithromycin after today's last dose. Recheck BMP and CBC in am. Will repeat CXR. Case discussed with CM/SW and family. Time spent with patient care 25 minutes. DVT Prophylaxis: SCD's Resuscitation Status: Do Not Resuscitate - Time spent with patient Time with patient PN: 25 minutes - Physician Narrative Physician: Edgar Hilario MD Narrative: Date: 01/27/18 Time: 1603 Hospital Course Summary Disclaimer: The visit summary below is not to be considered part of the above Progress Note. Hospital Course: 01/23/18 Admit to Hospitalist service Received 30 cc/kg bolus of NS - now fluids changed to LR running at 100 cc/hour Labs in the AM Oxygen therapy to keep sats > 90% RT consult Social Work consult Patient remains DNR Blood Cultures pending SCDs Rocephin 1gram IV q 24 hours Azithromycin 500mg IV q 24 hours Protonix 40mg IV q 24 hours Tylenol suppository prn as directed MSO4 prn as directed NPO - o/p swabs if needed 01/24 Sodium increasing - will start 1/2NS at 100cc/hr for hydration and to improve serum sodium. Continue Rocephin 1gram IV q 24 hours and azithromycin 500mg IV q 24 hours for pulmonary coverage. Supportive O2 as needed. MS for pain. 01/25 Persistent Hypernatremia despite IV fluids - Change fluid to D5W at 100ml/hr Continue with Rocephin and Azithromycin for antimicrobial coverage Continues therapeutic NPO Overall status is concerning. Likely need to discuss senior care plan with family. Possibly need to return to hospice/comfort care 01/26 Sodium has begun to slightly trend down- 164 Continue with IV fluids for hydration- D5W Speech consult to evaluate swallow Continue with Rocephin and Azithromycin for pulmonary antimicrobial coverage Continue to follow labs- Leukocytosis is trending down- WBC 14.7 Wean O2 as able 01/27 Not seeing clinical improvement. Met with Hospice nurses, CM/SW from [facility] [place] and family about care goals. Family in process of processing options. Sodium with decrease to 156 and potassium decreased to 3.0. Renal status improved. Will change IVF to D5W with 20 KCl at 100cc/hr. WBC with slight decrease to 14.0. Continue Rocephin but could stop azithromycin after today's last dose.
[2018-01-27] MEDS: POTASSIUM CHLORIDE 20 MEQ in D5W 1,000 ML IV SCH (18:06)
[2018-01-27] MEDS: CEFTRIAXONE 1 G in NS 100 ML IV SCH (18:07)
[2018-01-27] MEDS: AZITHROMYCIN IV 500 MG in NS 250ml 250 ML IV SCH (21:17)
[2018-01-27] MEDS: DOCUSATE SODIUM 100 MG CAPSULE PO SCH (21:18)
[2018-01-28] MEDS: POTASSIUM CHLORIDE 20 MEQ in D5W 1,000 ML IV SCH ×2 (06:44→17:40)
[2018-01-28] MEDS: ALBUTEROL/IPRATROPIUM 2.5mg-0.5mg/3ml NEB AEROSOL SCH ×4 (07:05→19:18)
--- NOTE | 2018-01-28 08:17 | XRay Report ---
Indication: F/U PROCEDURE: XR chest 1V: Encounter: Initial Comparison: January 24, 2018 Findings: Right pleural effusion continues to increase in size, now large. Increasing compressive atelectasis of the right middle and lower lobes. No pneumothorax. Trace left effusion with stable groundglass opacities in the left lower lobe. Heart size and mediastinal contours are unchanged. Impression: Increasing right effusion. .
[2018-01-28] MEDS: DULOXETINE 30 MG CAPSULE PO SCH ×2 (10:06→21:07)
[2018-01-28] MEDS: SENNOSIDES 8.6 MG TABLET PO SCH ×2 (10:07→21:07)
[2018-01-28] MEDS: PANTOPRAZOLE 40 MG INJECTION IVP SCH (10:11)
--- NOTE | 2018-01-28 15:09 | Progress Note ---
- Date 01/28/18 Subjective: F/U: Severe sepsis, pneumonia Resting in bed. Non verbal. Will track with eyes and did follow command to stick out tongue. Not moving ext. Shallow, unlabored breathing. Objective Vital signs: Temperature 100.8 F H 01/28/18 11:53 Pulse Rate 98 01/28/18 13:00 Respiratory Rate 18 01/28/18 11:53 Blood Pressure 129/74 01/28/18 11:53 Pulse Oximetry 94 01/28/18 14:50 Height/Weight/BMI: Height 1.57 m Weight 54.7 kg Body Mass Index 20.7 - Constitutional Present: well nourished, well developed, thin - Routine HEENT Exam Head: Present: normocephalic, atraumatic ENT: Present: mucous membranes dry - Routine Respiratory Exam Present: decreased breath sounds. Absent: respiratory distress - Routine Cardiovascular Exam Present: RRR, no murmur - Routine Abdominal Exam Present: soft, non distended, non tender. Absent: normoactive bowel sounds ( Decreased) - Routine Extremities Exam Present: no edema, pulses intact. Absent: cyanosis, clubbing - Routine Musculoskeletal Exam Musculoskeletal: Present: no clubbing or cyanosis - Routine Skin Exam Present: warm. Absent: dry (Moist) - Routine Neurological Exam Absent: moving all extremities Somnolent - Routine Psychiatric Exam Comments: Somnolent. Will track with eyes. Non verbal Results - Labs CBC & Chem 7: 01/28/18 04:26 01/28/18 04:26 Assessment and Plan Assessment and Plan: Assessment Severe sepsis (POA) Bilateral Pneumonia (POA) Right pleural effusion (POA) Acute Hypoxia Acute Encephalopathy - currently unresponsive - has been at home prior to presentation to ER Acute Kidney injury in setting of CKD (POA) - resolved Hypernatremia (POA) Hypokalemia (Not POA) Leukocytosis (POA) Severe Parkinson's disease - was on home hospice - however patient's family desires treatment of pneumonia and hospitalization HTN history Osteoarthritis / Contractures Plan No significant clinical improvement. Sodium with decrease to 149 from 156 yesterday. WBC with slight elevation to 14.6. CXR showing increase of right effusion. Continue IVF to help improve sodium. Continue Rocephin; may stop azithromycin as course completed. Palliative meeting arranged with family this evening to discuss course of care. Recheck BMP and CBC in am. Case discussed with CM/SW. Time spent with patient care 25 minutes. DVT Prophylaxis: SCD's Resuscitation Status: Do Not Resuscitate - Time spent with patient Time with patient PN: 25 minutes - Physician Narrative Physician: Edgar Hilario MD Narrative: Date: 01/28/18 Time: 1505 Hospital Course Summary Disclaimer: The visit summary below is not to be considered part of the above Progress Note. Hospital Course: 01/23/18 Admit to Hospitalist service Received 30 cc/kg bolus of NS - now fluids changed to LR running at 100 cc/hour Labs in the AM Oxygen therapy to keep sats > 90% RT consult Social Work consult Patient remains DNR Blood Cultures pending SCDs Rocephin 1gram IV q 24 hours Azithromycin 500mg IV q 24 hours Protonix 40mg IV q 24 hours Tylenol suppository prn as directed MSO4 prn as directed NPO - o/p swabs if needed 01/24 Sodium increasing - will start 1/2NS at 100cc/hr for hydration and to improve serum sodium. Continue Rocephin 1gram IV q 24 hours and azithromycin 500mg IV q 24 hours for pulmonary coverage. Supportive O2 as needed. MS for pain. 01/25 Persistent Hypernatremia despite IV fluids - Change fluid to D5W at 100ml/hr Continue with Rocephin and Azithromycin for antimicrobial coverage Continues therapeutic NPO Overall status is concerning. Likely need to discuss salvage determiner plan with family. Possibly need to return to hospice/comfort care 01/26 Sodium has begun to slightly trend down- 164 Continue with IV fluids for hydration- D5W Speech consult to evaluate swallow Continue with Rocephin and Azithromycin for pulmonary antimicrobial coverage Continue to follow labs- Leukocytosis is trending down- WBC 14.7 Wean O2 as able 01/27 Not seeing clinical improvement. Met with Hospice nurses, CM/SW from [facility] and family about care goals. Family in process of processing options. Sodium with decrease to 156 and potassium decreased to 3.0. Renal status improved. Will change IVF to D5W with 20 KCl at 100cc/hr. WBC with slight decrease to 14.0. Continue Rocephin but could stop azithromycin after today's last dose. 01/28 No significant clinical improvement. Sodium with decrease to 149 from 156 yesterday. WBC with slight elevation to 14.6. CXR showing increase of right effusion. Continue IVF to help improve sodium. Continue Rocephin; may stop azithromycin as course completed. Palliative meeting arranged with family this evening to discuss course of care.
--- NOTE | 2018-01-28 19:55 | Consult Note ---
- Consultation Inpatient Palliative Consultation Visit Ms Robledo is seen with her Willy and a family friend. Palliative consult / Goals of Care conversation RE: Terminal prognosis, gravely acutely ill with decision to revoke hospice and seek aggressive (rescue) care - however the patient progress shows stabilization of the sepsis but little realistic hope of ability to mount a significant recovery - thus requested consult for assist with medical decision making discussion. Ms Robledo suffers from advanced chronic (end stage / Terminal) Parkinsons disease. She's been in hospice care for an extended period. She was in fact likely within hours of natural , however family had determined that they wanted attempt at aggressive "rescue care" for her at that point. Also has HTN and does take some analgesics at times for comfort, along with a bowel protocol (Hospice), and did take some parkinsons meds. She previously was able to be up with assistance and transport with assist by wheelchair, take PO, etc. Then within days this declined and she became minimally responsive. I believe her son felt strongly that she should be given an attempt at treatment vs. "the watch" by hospice. Thus the revocation and presentation to ED by EMS, eval showing sepsis and respiratory distress with profound hypovolemia and subsequent admission and rescue care delivery. She has stabilized but not showing overall functional improvement that would ascribe us to believe she's going to revert to baseline. Meanwhile she's not able to safely swallow, meaning post-discharge our scenario is considerably more grim than prior to this acute decline. Eval and record review today reveals she presented with bibasilar infiltrates, fever, sepsis, and profound hypernatremia (patient by report was effectively in the transitional phase of actively dying at this point). As above, rescue care did work to stabilize her sepsis and her WBC has improved. however with hydration she's "fluffed out" a in her right lower chest with pleural effusion and is puffy in her hands (IV just infiltrated as well). Her labs are approaching normal and she's likely euvolemic at this point. However effects of the infection and sepsis (and end stage primary illness of her Parkinson's) have not resolved and she is still minimally responsive (opens eyes and can nod yes at times - nonverbal). Mild but not severe anemia, presumably chronic. ROS and Exam is deferred as the point of this visit was Care Coordination and Goals of Care. Salient Points from discussion with Willy (): - Patient is (firm) DNR - feels she (and he) would very much prefer returning home at end of hospitalization. He misses her terribly. Approaching 67 yr anniversary. - Long discussion about her "new baseline" and that her physical caregiving needs will be much higher than before (effectively 1-2 person full assist for all cares now) - Disucssed that she is not safely swallowing. PO pills and PO feeding are not deemed safe at this point. - Long discussion about comfort care with respect to IVF / Feeding. Discussed pro / con of IVF and oral (or parenteral / enterogastric) feeds as a medical intervention that in this scenario likely adds little to the dental hygiene professor outcome, does not change her short or dental hygiene professor prognosis, and could easily add symptom burden (this admission is quite likely to be from aspiration event related to her progressive dysphagia). - Discussed variations of the levels of care that can feasibly be offered with hospice (will not encompass her full 24/7 nursing requirements). He does have a LTC insurance policy for her that can cover some private duty home nursing - would feel that he needs to execute on this. He and friend discussed and seem in agreement with this to facilitate the goal of returning (safely) home. Mentioned Continuous Care GIP and Respite Care options with hospice (and LTCF placement of course). - Reviewed his comfort level with current hospice providers - he's comfortable and does not feel the need to interview other vendors, etc. - I feel upon chart review that tho her albumin was not severely low and sounds like within 1-2 weeks her level of function was reasonable for them to care for her independently at home, that baseline is likely not to be attainable. She would not be a candidate for Medicare SNF / Rehab bed in my opinion because of prison prognosis. - Discussed IVF - optional to choose not to restart IV (we can provide comfort meds via oral conc. liquid, etc.) He is to f/u with RN's but likely to choose not to "restick" her. I think that is medically reasonable and likely does not impact her outcome significantly. In fact she may be starting to have fluid overload burden due to her fragile state. - There seems to be no pressure or implorement on his part to explore artificial nutrition which I feel is medically appropriate. He was receptive to the medical data in this scenario that shows no significant impact on outcome for these patients (risk very high for aspiration even with Gtube feeds , Mortality risk not significantly impacted). Impression 1) Acute Sepsis from pulmonary source (would have to ? if aspiration was the trigger). 2) PRofound hypernatremia and electrolyte disturbance (intake poor in days prior to admission). Seems close to euvolemia now, still minimally responsive , bedbound, dependent for all care and not safely taking PO fluids or nutrition. Can see if another overnight changes that outlook, but I would be pessimistic that any improvement will last or be significant. This was discussed at length with her Mr Lillie. 3) I do have some concern that her son may not be as comfortable with her dying at home and is not necessarily having this conversation with Willy. He was not able to be present for the visit - spoke briefly with him by phone and he responded favorably to the Palliative / Goals of Care Consultation plan with us visiting with Willy (hospice will need to f/u with him in this regard and continue Goals of Care / Medical Reality education. 4) Severe end stage (terminal) phase of advanced chronic Parkinsons Disease Plan: Medical Recommendations (joint visit with Marker Machine Attendant) - OK to consider home hospice but realistically need to blend with private duty REPAIRER SHOE STICKS / YOUTH CAREER SPECIALIST etc. to provide assist with turning and personal care (or consider placement). strongly prefers the former - does have LTC coverage that includes private duty home nursing benefits. He reports he's comfortable remaining with current hospice team, who obviously knows patient well (and has helped navigate his LTC insurance as well in past). - I'm not feeling that extended Abx plays much of a role, though completing a course of Abx is not unreasonable - can readress after IV access decision is considered (transition back to comfort care reasonable and may be the choice he prefers after further contemplation) - IV Hydration benefit role has probably largely served it's purpose - suggested reduced or saline lock IVF to . Particularly if her swallowing function does not improve in next 12-24 hours and we're truly intending a comfort care plan. - Very much appropriate to resume hospice at discharge - placement discussion as above. Son may press for facility (which I surmise may betray a hidden concern of discomfort for patient dying in the home). Would be good to address this again before discharge and ask hospice to dial in on this issue so patient and can be more successful with what Willy feels would be her strong wish to live the remainder of her life at home being cared for with comfort care services. - May want to suggest do not hospitalize Care Plan goal with DPOA / Son / Hospice as a discharge plan. Thank you very much for the opportunity to meet with this nice family. Arcadio Gutierrez MD FP / Hospice & Palliative Medicine Time spent: 90 min direct patient care, 30 min documentation.
[2018-01-28] MEDS: CEFTRIAXONE 1 G in NS 100 ML IV SCH (20:00)
[2018-01-28] MEDS: DOCUSATE SODIUM 100 MG CAPSULE PO SCH (21:07)
[2018-01-28] MEDS: ACETAMINOPHEN 650 MG SUPPOSITORY PR PRN (22:17)
[2018-01-29] MEDS: POTASSIUM CHLORIDE 20 MEQ in D5W 1,000 ML IV SCH ×2 (04:42→15:06)
[2018-01-29] MEDS: SENNOSIDES 8.6 MG TABLET PO SCH ×2 (08:18→22:05)
[2018-01-29] MEDS: DULOXETINE 30 MG CAPSULE PO SCH ×2 (08:18→22:05)
[2018-01-29] MEDS: PANTOPRAZOLE 40 MG INJECTION IVP SCH (08:29)
[2018-01-29] MEDS: ALBUTEROL/IPRATROPIUM 2.5mg-0.5mg/3ml NEB AEROSOL SCH ×3 (08:47→16:46)
--- NOTE | 2018-01-29 09:39 | Progress Note ---
- Date 01/29/18 Subjective: Shantal is seen today in follow up. She is sleeping and does not arouse during examination. She is currently resting on room air and does not appear to be in any distress. Persistent Leukocytosis and Hypernatremia. Vital signs stable- 154/72. Objective Vital signs: Temperature 99.5 F 01/29/18 07:50 Pulse Rate 87 01/29/18 07:50 Respiratory Rate 24 01/29/18 08:48 Blood Pressure 154/72 H 01/29/18 07:50 Pulse Oximetry 92 01/29/18 09:00 Height/Weight/BMI: Height 1.57 m Weight 54.4 kg Body Mass Index 20.7 - Constitutional Present: no acute distress, well nourished, well developed - Routine HEENT Exam ENT: Present: mucous membranes moist - Routine Respiratory Exam Present: diminished air movement. Absent: wheezes - Routine Cardiovascular Exam Present: RRR, S1, S2. Absent: murmur - Routine Abdominal Exam Present: soft, normoactive bowel sounds, non distended. Absent: tenderness - Routine Extremities Exam Comments: Mottling to bilateral feet - Routine Skin Exam Present: intact, dry, warm - Routine Neurological Exam Present: altered mental status - Routine Lymphatic Exam Lymphatic: Absent: adenopathy - Routine Psychiatric Exam Present: cooperative, unable to assess Results - Labs CBC & Chem 7: 01/29/18 06:50 01/29/18 04:48 Assessment and Plan Assessment and Plan: Assessment Severe sepsis (POA) Bilateral Pneumonia (POA) Right pleural effusion (POA) Acute Hypoxia Acute Encephalopathy - currently unresponsive - has been at home prior to presentation to ER Acute Kidney injury in setting of CKD (POA) - resolved Hypernatremia (POA) Hypokalemia (Not POA) Leukocytosis (POA) Severe Parkinson's disease - was on home hospice - however patient's family desires treatment of pneumonia and hospitalization HTN history Osteoarthritis / Contractures 01/29 Persistent leukocytosis and hypernatremia At this point, we'll continue with IV fluids for hydration given her diminished oral intake Palliative care discussion yesterday with Dr. Gutierrez and presence of and family friend This was discussed further with case management today. Hopeful to determine discharge location, home versus facility today. Hopeful for discharge back to hospice tomorrow Further discussion with attending, Dr Blanton - Physician Narrative Physician: Barb Blanton MD Narrative: Date: 01/29/18 Time: 1654 patient was seen by me earlier today. There has been no family around and I have been to the room twice today. I have discussed the case with the case management. The patient appears comfortable. She is completely nonverbal but will blink her eyes yes and no when instructed. She has a week handgrip bilaterally to command. She denies hurting to me. She denied feeling short of breath. There is some very unfortunate family dynamics going on between the brother and sister. The has some underlying dementia which makes things more problematic. She has been in hospice since 2016 however with her increase worker breathing the son insisted the patient be hospitalized and cared for more aggressively than hospice. She continues to breathe very shallow. She has an increasing right pleural effusion. The daughter is supposed to be in town this coming Friday. The patient's white blood count is back up today with elevated bands at 9. Her neutrophils are up a bit as well today. Sodium slightly higher today. She is also having fevers with a Tmax of 100.5 so far today. Yesterday her Tmax was 101. She continues on Rocephin with a presumptive diagnosis of a pneumonia. I'm going to repeat her urine analysis today. Her most recent chest x-ray was just yesterday which just showed increasing right effusion. This is causing compressive atelectasis of the right middle and lower lobes. PE: Gen: awakens. Follows most commands. Non verbal Skin: warm and dry. HEENT: NC/AT PERRL, EOMI, sclera, lids and conjunctiva wnl. dryMM. OP clear. Neck: Fairly rigid, No JVD, Carotids 2+ without bruits. Lungs: diminished R>L. crackles on right. No wheezes or rhonchi, shallow breaths. Heart: regular. No murmur, rub or gallop. Abdomen: soft. NT/ND, +BS MS: Generalized muscle weakness, No edema Neuro: No apparent focal deficit but difficult to test Psy: Flat affect Assessment Severe sepsis (POA) -WBC and bands up again today -Worsening right effusion -will recheck urine Bilateral Pneumonia (POA) -No CXR evidence of pna on CXR yesterday Right pleural effusion (POA) -Worsening Acute Hypoxia -On RA at present Severe Parkinson's disease - was on home hospice - however patient's family desires treatment of pneumonia and hospitalization -This is end stage. Her prognosis is very poor. Acute Encephalopathy - Non verbal, follows some commands Acute Kidney injury in setting of CKD (POA) - resolved Hypernatremia (POA) -Persistent but better than admission Hypokalemia (Not POA) -Resolved. Leukocytosis (POA) -Persistent HTN history -Reasonable Osteoarthritis / Contractures Plan: Persistent leukocytosis and hypernatremia At this point, we'll continue with IV fluids for hydration given her diminished oral intake Palliative care discussion yesterday with Dr. Gutierrez and presence of and family friend This was discussed further with case management today. Hopeful to determine discharge location, home versus facility today. Hopeful for discharge back to hospice tomorrow The patient was independently interviewed and examined by me. She is definitely a hospice candidate. Her prognosis is very poor and I would not expect her last a whole lot longer. Hopefully we can get the family to all agree. The daughter supposed to be here Friday. They will also need additional help beside hospice but have apparently resources to provide that. I have reviewed her labs, notes and imaging. I agree with TORCH CUTTER assessment and plan. Hospital Course Summary Disclaimer: The visit summary below is not to be considered part of the above Progress Note. Hospital Course: 01/23/18 Admit to Hospitalist service Received 30 cc/kg bolus of NS - now fluids changed to LR running at 100 cc/hour Labs in the AM Oxygen therapy to keep sats > 90% RT consult Social Work consult Patient remains DNR Blood Cultures pending SCDs Rocephin 1gram IV q 24 hours Azithromycin 500mg IV q 24 hours Protonix 40mg IV q 24 hours Tylenol suppository prn as directed MSO4 prn as directed NPO - o/p swabs if needed 01/24 Sodium increasing - will start 1/2NS at 100cc/hr for hydration and to improve serum sodium. Continue Rocephin 1gram IV q 24 hours and azithromycin 500mg IV q 24 hours for pulmonary coverage. Supportive O2 as needed. MS for pain. 01/25 Persistent Hypernatremia despite IV fluids - Change fluid to D5W at 100ml/hr Continue with Rocephin and Azithromycin for antimicrobial coverage Continues therapeutic NPO Overall status is concerning. Likely need to discuss exterminator helper plan with family. Possibly need to return to hospice/comfort care 01/26 Sodium has begun to slightly trend down- 164 Continue with IV fluids for hydration- D5W Speech consult to evaluate swallow Continue with Rocephin and Azithromycin for pulmonary antimicrobial coverage Continue to follow labs- Leukocytosis is trending down- WBC 14.7 Wean O2 as able 01/27 Not seeing clinical improvement. Met with Hospice nurses, [place] [facility] [place] care goals. Family in process of processing options. Sodium with decrease to 156 and potassium decreased to 3.0. Renal status improved. Will change IVF to D5W with 20 KCl at 100cc/hr. WBC with slight decrease to 14.0. Continue Rocephin but could stop azithromycin after today's last dose. 01/28 No significant clinical improvement. Sodium with decrease to 149 from 156 yesterday. WBC with slight elevation to 14.6. CXR showing increase of right effusion. Continue IVF to help improve sodium. Continue Rocephin; may stop azithromycin as course completed. Palliative meeting arranged with family this evening to discuss course of care. 01/29 Persistent leukocytosis and hypernatremia At this point, we'll continue with IV fluids for hydration given her diminished oral intake Palliative care discussion yesterday with Dr. Gutierrez and presence of and family friend This was discussed further with case management today. Hopeful to determine discharge location, home versus facility today. Hopeful for discharge back to hospice tomorrow Further discussion with attending, Dr Blanton
[2018-01-29] MEDS ORDERED: ALBUTEROL/IPRATROPIUM 2.5mg-0.5mg/3ml NEB AEROSOL PRN (15:01)
[2018-01-29] MEDS: ACETAMINOPHEN 650 MG SUPPOSITORY PR PRN (15:09)
[2018-01-29] MEDS: CEFTRIAXONE 1 G in NS 100 ML IV SCH (19:58)
[2018-01-29] MEDS: DOCUSATE SODIUM 100 MG CAPSULE PO SCH (22:05)
[2018-01-30] MEDS: POTASSIUM CHLORIDE 20 MEQ in D5W 1,000 ML IV SCH ×3 (02:00→22:12)
[2018-01-30] MEDS: DULOXETINE 30 MG CAPSULE PO SCH ×2 (11:38→20:11)
[2018-01-30] MEDS: SENNOSIDES 8.6 MG TABLET PO SCH ×2 (11:38→20:11)
[2018-01-30] MEDS: PANTOPRAZOLE 40 MG INJECTION IVP SCH (11:42)
--- NOTE | 2018-01-30 14:47 | Progress Note ---
- Date 01/30/18 Subjective: Shantal is seen today in follow up. She is sleeping during examination. She does arouse and opens her eyes making eye contact. She does answer "Hi". When asked if she is hurting she states "no". It is on 1 liters oxygen by nasal cannula. This afternoon she is noted to have a fever 100.4. Remains NPO. Objective Vital signs: Temperature 97.0 F 01/30/18 13:00 Pulse Rate 90 01/30/18 13:00 Respiratory Rate 20 01/30/18 13:00 Blood Pressure 136/70 01/30/18 13:00 Pulse Oximetry 96 01/30/18 13:00 Height/Weight/BMI: Height 1.57 m Weight 54.5 kg Body Mass Index 20.7 - Constitutional Present: thin - Routine HEENT Exam Eye: Present: EOMI ENT: Present: mucous membranes moist, dentition normal - Routine Respiratory Exam Present: CTA bilaterally. Absent: wheezes - Routine Cardiovascular Exam Present: RRR, S1, S2. Absent: murmur - Routine Abdominal Exam Present: soft, normoactive bowel sounds, non distended. Absent: tenderness - Routine Skin Exam Present: intact, dry, warm - Routine Neurological Exam Present: alert, CN II-XII intact - Routine Lymphatic Exam Lymphatic: Absent: adenopathy - Routine Psychiatric Exam Present: normal affect Results - Labs CBC & Chem 7: 01/30/18 05:19 01/30/18 05:19 Assessment and Plan Assessment and Plan: Assessment Severe sepsis (POA) Bilateral Pneumonia (POA) Right pleural effusion (POA) Acute Hypoxia Acute Encephalopathy - currently unresponsive - has been at home prior to presentation to ER Acute Kidney injury in setting of CKD (POA) - resolved Hypernatremia (POA) Hypokalemia (Not POA) Leukocytosis (POA) Severe Parkinson's disease - was on home hospice - however patient's family desires treatment of pneumonia and hospitalization HTN history Osteoarthritis / Contractures 01/30 Continues NPO Persistent leukocytosis and hypernatremia Continued IV fluids for hydration multiple conversations with CM regarding plan No legal DPOA - Physician Narrative Physician: Barb Blanton MD Narrative: Date: 01/30/18 Time: 1620 Ms. Moreira was independently interviewed and examined by me. She said "okay" to me today. She did weakly tourist information assistant my hands bilaterally. She appears comfortable. Physical Exam: Gen: awakens. Follows most commands. Pt did say a few words today Skin: warm and dry. Legs are mildly mottled. HEENT: NC/AT PERRL, EOMI, sclera, lids and conjunctiva wnl. dryMM. OP clear. Neck: Fairly rigid, No JVD, Carotids 2+ without bruits. Lungs: diminished R>L. crackles on right. No wheezes or rhonchi, shallow breaths. Heart: regular. No murmur, rub or gallop. Abdomen: soft. NT/ND, +BS MS: Generalized muscle weakness, No edema Neuro: No apparent focal deficit but difficult to test Psy: Flat affect Assessment Severe sepsis (POA) -Intermittent fevers, Tmax today 100.4 at 1400 -WBC and bands down today -Worsening right effusion per CXR 01/30/18 Bilateral Pneumonia (POA) -No CXR evidence of pna on CXR 01/30/18 Right pleural effusion (POA) -Worsening on CXR 01/30/18 -repeat chest x-ray in a.m. -May need to have pulmonology see her for possible tap of the right pleural effusion Acute Hypoxia -On RA at present Severe Parkinson's disease - was on home hospice - however patient's family desires treatment of pneumonia and hospitalization -This is end stage. Her prognosis is very poor. Acute Encephalopathy - Non verbal, follows some commands Acute Kidney injury in setting of CKD (POA) - resolved Hypernatremia (POA) -Much better today with the D5W IVF Hypokalemia (Not POA) -Borderline today, will increase K in IVF -Check mag in am. Leukocytosis (POA) -improved HTN history -Reasonable anemia -Fairly stable Osteoarthritis / Contractures Plan: significant legal issues at present. The sons deep POA papers were found to be invalid by the hospital yam curer. Currently the patient has no deep POA. Case management advised the to get guardianship from the courts and offered her legal assistance for him. He did not take her up on that and decided to go home and see if he could find any of his paperwork. The daughter decided not to come after all. Hospice was revoked when she came back here for aggressive treatment so currently we are continuing aggressive treatment. This would include TPN. The patient was independently interviewed and examined by me. She is definitely a hospice candidate. Her prognosis is very poor and I would not expect her last a whole lot longer. Hopefully we can get the family to all agree. They will also need additional help beside hospice but apparently they have resources to provide that. I have reviewed her labs, notes and imaging. I agree with CYCLE ANALYST assessment and plan. Hospital Course Summary Disclaimer: The visit summary below is not to be considered part of the above Progress Note. Hospital Course: 01/23/18 Admit to Hospitalist service Received 30 cc/kg bolus of NS - now fluids changed to LR running at 100 cc/hour Labs in the AM Oxygen therapy to keep sats > 90% RT consult Social Work consult Patient remains DNR Blood Cultures pending SCDs Rocephin 1gram IV q 24 hours Azithromycin 500mg IV q 24 hours Protonix 40mg IV q 24 hours Tylenol suppository prn as directed MSO4 prn as directed NPO - o/p swabs if needed 01/24 Sodium increasing - will start 1/2NS at 100cc/hr for hydration and to improve serum sodium. Continue Rocephin 1gram IV q 24 hours and azithromycin 500mg IV q 24 hours for pulmonary coverage. Supportive O2 as needed. MS for pain. 01/25 Persistent Hypernatremia despite IV fluids - Change fluid to D5W at 100ml/hr Continue with Rocephin and Azithromycin for antimicrobial coverage Continues therapeutic NPO Overall status is concerning. Likely need to discuss assisted plan with family. Possibly need to return to hospice/comfort care 01/26 Sodium has begun to slightly trend down- 164 Continue with IV fluids for hydration- D5W Speech consult to evaluate swallow Continue with Rocephin and Azithromycin for pulmonary antimicrobial coverage Continue to follow labs- Leukocytosis is trending down- WBC 14.7 Wean O2 as able 01/27 Not seeing clinical improvement. Met with Hospice nurses, [place] [facility] [place] about care goals. Family in process of processing options. Sodium with decrease to 156 and potassium decreased to 3.0. Renal status improved. Will change IVF to D5W with 20 KCl at 100cc/hr. WBC with slight decrease to 14.0. Continue Rocephin but could stop azithromycin after today's last dose. 01/28 No significant clinical improvement. Sodium with decrease to 149 from 156 yesterday. WBC with slight elevation to 14.6. CXR showing increase of right effusion. Continue IVF to help improve sodium. Continue Rocephin; may stop azithromycin as course completed. Palliative meeting arranged with family this evening to discuss course of care. 01/29 Persistent leukocytosis and hypernatremia At this point, we'll continue with IV fluids for hydration given her diminished oral intake Palliative care discussion yesterday with Dr. Gutierrez and presence of and family friend This was discussed further with case management today. Hopeful to determine discharge location, home versus facility today. Hopeful for discharge back to hospice tomorrow Further discussion with attending, Dr Blanton 01/30 Continues NPO Persistent leukocytosis and hypernatremia Continued IV fluids for hydration multiple conversations with CM regarding plan No legal DPOA
[2018-01-30] MEDS: CEFTRIAXONE 1 G in NS 100 ML IV SCH (18:31)
[2018-01-30] MEDS: DOCUSATE SODIUM 100 MG CAPSULE PO SCH (20:11)
[2018-01-31] MEDS: DULOXETINE 30 MG CAPSULE PO SCH ×2 (08:33→20:32)
[2018-01-31] MEDS: SENNOSIDES 8.6 MG TABLET PO SCH ×2 (08:33→20:32)
[2018-01-31] MEDS: PANTOPRAZOLE 40 MG INJECTION IVP SCH (08:35)
[2018-01-31] MEDS: POTASSIUM CHLORIDE 20 MEQ in D5W 1,000 ML IV SCH (08:37)
--- NOTE | 2018-01-31 12:50 | Progress Note ---
- Date 01/31/18 Subjective: Mrs. Robledo is an 82 y/o w/ severe Parkinson's, HTN, arthritis and other medical issues who is currently cared for at home by her family as well as home hospice who is brought in by EMS on 01/22/18 d/t decreasing responsiveness and shortness of breath. The patient was seen by hospice nurse, and she was unresponsive and apparently had not been out of bed since the previous Friday and has not been taking po. The patient's son and desired that EMS be contacted and that patient be transported to the ED at [facility] for evaluation. In ER, she had temp of 101.6 F, tachycardic w/ HR in the 140s, lactate of 2.8, Na = 161, BUN/Cr = 61/2.1, WBC =16.2. Influenza negative, NS x 2 L given, and CXR showed likely bilateral lower lobe pneumonia so Rocephin and Azithromycin IV given in ER. Per ER physician's report, patient has a DNR and will remain a DNR per patient's family's request however patient's family would like for the pneumonia to be treated and patient to be admitted to the hospital. Patient on oxygen therapy as she was noted to be hypoxic. Currently 6 L/min HF NC place over the mouth as she is a mouth breather. Patient's fluids were changed from NS to LR which is running currently at 100 cc/hour. Patient to be admitted to the Hospitalist service for further evaluation and management. History obtained from ER physician and notes, as patient is minimally responsive and patient's family left the ER to return home once patient was accepted to the medical floor. When seen by me this am, she opens eyes to my voice. She is not talking to me today at all. Unable to get ROS. Her CXR today continues to show increasing right effusion. Objective Vital signs: Temperature 99.9 F 01/31/18 07:00 Pulse Rate 92 01/31/18 12:00 Respiratory Rate 16 01/31/18 00:00 Blood Pressure 152/77 H 01/31/18 07:00 Pulse Oximetry 93 01/31/18 12:00 Height/Weight/BMI: Height 1.57 m Weight 54.8 kg Body Mass Index 20.7 Comments: Gen: awakens. Skin: warm and dry. Legs are mildly mottled. HEENT: NC/AT PERRL, EOMI, sclera, lids and conjunctiva wnl. dryMM. OP clear. Neck: Fairly rigid, No JVD, Carotids 2+ without bruits. Lungs: diminished R>L. crackles on right. No wheezes or rhonchi, shallow breaths. Heart: regular. No murmur, rub or gallop. Abdomen: soft. NT/ND, +BS MS: Generalized muscle weakness, No edema Neuro: No apparent focal deficit but difficult to test Psy: Not assessable Results - Labs CBC & Chem 7: 01/31/18 04:12 01/31/18 04:12 Assessment and Plan Assessment and Plan: Assessment/Plan: Severe sepsis (POA) -Intermittent fevers, Tmax yesterday 100.7 at 1646 -WBC and bands up slightly today -Worsening right effusion per CXR 01/30/18 -She continues on Ceftriaxone Bilateral Pneumonia (POA) -No CXR evidence of pna on CXR 01/30/18 -Continues on Ceftriaxone Right pleural effusion (POA) -Worsening on CXR 01/30/18 -May need to have pulmonology see her for possible tap of the right pleural effusion -Will decrease IVF Acute Hypoxia -Requiring 1 liter via NC Severe Parkinson's disease - was on home hospice - however patient's family desires treatment of pneumonia and hospitalization -This is end stage. Her prognosis is very poor. Acute Encephalopathy -Non verbal, follows some commands Acute Kidney injury in setting of CKD (POA) -resolved Hypernatremia (POA) -Normalized, will decrease D5W -Repeat labs in am Hypokalemia (Not POA) -Will replace IV today Leukocytosis (POA) -slightly up today HTN history -Reasonable anemia -Fairly stable Osteoarthritis / Contractures Prophylaxis -On PPI, SQ heparin Pt has no legal DPOA -we are trying to get guardianship arranged This is a tough situation as she expressed desire to be hospice in 2016 when she was still able to speak for herself. With this admission, hospice was automatically revoked. Now, she does not have a DPOA that can make decisions for her and she is not communicating enough to state her wishes. I did speak with CM today and apparently the was in with a friend who works at a local law office and is going to help the initiate guardianship paperwork. In the mean time, she is only a DNR so ideally we should start feeding her. I will try to initiate PPN. If that gets going we will stop the IVF all together. - Physician Narrative Narrative: Date: 01/31/18 Time: 1240 Hospital Course Summary Disclaimer: The visit summary below is not to be considered part of the above Progress Note. Hospital Course: 01/23/18 Admit to Hospitalist service Received 30 cc/kg bolus of NS - now fluids changed to LR running at 100 cc/hour Labs in the AM Oxygen therapy to keep sats > 90% RT consult Social Work consult Patient remains DNR Blood Cultures pending SCDs Rocephin 1gram IV q 24 hours Azithromycin 500mg IV q 24 hours Protonix 40mg IV q 24 hours Tylenol suppository prn as directed MSO4 prn as directed NPO - o/p swabs if needed 01/24 Sodium increasing - will start 1/2NS at 100cc/hr for hydration and to improve serum sodium. Continue Rocephin 1gram IV q 24 hours and azithromycin 500mg IV q 24 hours for pulmonary coverage. Supportive O2 as needed. MS for pain. 01/25 Persistent Hypernatremia despite IV fluids - Change fluid to D5W at 100ml/hr Continue with Rocephin and Azithromycin for antimicrobial coverage Continues therapeutic NPO Overall status is concerning. Likely need to discuss assistant terminal manager plan with family. Possibly need to return to hospice/comfort care 01/26 Sodium has begun to slightly trend down- 164 Continue with IV fluids for hydration- D5W Speech consult to evaluate swallow Continue with Rocephin and Azithromycin for pulmonary antimicrobial coverage Continue to follow labs- Leukocytosis is trending down- WBC 14.7 Wean O2 as able 01/27 Not seeing clinical improvement. Met with Hospice nurses, CM/SW from [facility] and family about care goals. Family in process of processing options. Sodium with decrease to 156 and potassium decreased to 3.0. Renal status improved. Will change IVF to D5W with 20 KCl at 100cc/hr. WBC with slight decrease to 14.0. Continue Rocephin but could stop azithromycin after today's last dose. 01/28 No significant clinical improvement. Sodium with decrease to 149 from 156 yesterday. WBC with slight elevation to 14.6. CXR showing increase of right effusion. Continue IVF to help improve sodium. Continue Rocephin; may stop azithromycin as course completed. Palliative meeting arranged with family this evening to discuss course of care. 01/29 Persistent leukocytosis and hypernatremia At this point, we'll continue with IV fluids for hydration given her diminished oral intake Palliative care discussion yesterday with Dr. Gutierrez and presence of and family friend This was discussed further with case management today. Hopeful to determine discharge location, home versus facility today. Hopeful for discharge back to hospice tomorrow Further discussion with attending, Dr Blanton 01/30 Continues NPO Persistent leukocytosis and hypernatremia Continued IV fluids for hydration multiple conversations with CM regarding plan No legal DPOA
[2018-01-31] MEDS ORDERED: PPN - PHARMACY CONSULT MC ONE (13:27)
[2018-01-31] MEDS: HEPARIN SUB-Q 5,000units/0.5ml INJECTION SQ SCH ×2 (14:54→20:32)
[2018-01-31] MEDS: MULTI-VIT INFUSION 10 ML, MULTI-TRACE ELEMENTS 1 ML in PPN - STANDARD FORMULA 2,000 ML IV SCH (14:55)
[2018-01-31] MEDS: ACETAMINOPHEN 650 MG SUPPOSITORY PR PRN (16:47)
[2018-01-31] MEDS: FAT EMULSION 20% 500 ML BAG IV SCH (16:47)
[2018-01-31] MEDS: LIDOCAINE 1% INJ 10 MG, POTASSIUM CHLORIDE INJ 10 MEQ in NS 100 ML IV SCH ×4 (17:50→23:10)
[2018-01-31] MEDS: CEFTRIAXONE 1 G in NS 100 ML IV SCH (18:56)
[2018-01-31] MEDS: DOCUSATE SODIUM 100 MG CAPSULE PO SCH (20:32)
[2018-02-01] MEDS: SALINE FLUSH 10ml SYRINGE IVF PRN ×5 (02:19→20:36)
[2018-02-01] MEDS ORDERED: VANCOMYCIN - PHARMACY CONSULT MC ONE (07:24)
[2018-02-01] MEDS: SENNOSIDES 8.6 MG TABLET PO SCH ×2 (08:11→20:38)
[2018-02-01] MEDS: DULOXETINE 30 MG CAPSULE PO SCH ×2 (08:11→20:38)
[2018-02-01] MEDS: PANTOPRAZOLE 40 MG INJECTION IVP SCH (08:11)
[2018-02-01] MEDS: HEPARIN SUB-Q 5,000units/0.5ml INJECTION SQ SCH ×2 (08:12→20:27)
[2018-02-01] MEDS: PIPERACILLIN/TAZOBACTAM 3.375 GM in NS 100 ML IV SCH ×4 (09:00→20:26)
--- NOTE | 2018-02-01 09:18 | Pharmacy Consult-Antibiotics ---
Pharmacy Consult-Vancomycin - Laboratory Information WBC 23.2 T/MM3 (4.5-11.0) H D 02/01/18 04:24 BUN 13.0 MG/DL (7-17) D 02/01/18 05:06 Creatinine 0.7 mg/dL (0.7-1.2) 02/01/18 05:06 Procalcitonin 19.72 NG/ML H* 02/01/18 08:05 - Consult Information Vancomycin consult noted by Dr Blanton for Ms Moreira, who has severe sepsis and bilateral pneumonia. Will give a vancomycin loading dose of 1500mg followed by vancomycin 1250mg IV q18h. Will continue to monitor and adjust dose accordingly. Thank you.
--- NOTE | 2018-02-01 10:15 | XRay Report ---
Indication: Right pleural effusion PROCEDURE: XR chest 1V: Encounter: Initial Comparison: January 28, 2018 Findings: Stable moderate to large right pleural effusion with compressive atelectasis of a large portion of the right lung. Airspace disease throughout the right upper lobe. Increased interstitial markings in the left mid to lower lung field. Small left effusion. No pneumothorax. Cardiac silhouette is obscured by the effusion. Impression: Stable right effusion. Worsening pulmonary edema. .
--- NOTE | 2018-02-01 11:12 | Pharmacy Consult-TPN/PPN ---
Pharmacy Consult-TPN/PPN - Laboratory Information Chemistry Turbidity < 20 (0-20) 02/01/18 05:06 Sodium 147 MEQ/L (134-144) H D 02/01/18 05:06 Potassium 4.3 MEQ/L (3.6-5) D 02/01/18 05:06 Chloride 108 MEQ/L (98-107) H 02/01/18 05:06 Carbon Dioxide 29 MEQ/L (22-30) 02/01/18 05:06 Anion Gap 10 meq/L (5-15) 02/01/18 05:06 BUN 13.0 MG/DL (7-17) D 02/01/18 05:06 Creatinine 0.7 mg/dL (0.7-1.2) 02/01/18 05:06 GFR Calculation 80 02/01/18 05:06 BUN/Creatinine Ratio 19 RATIO (6-26) 02/01/18 05:06 Glucose 118 MG/DL (65-110) H 02/01/18 05:06 Glucometer 144 mg/dL (65-110) 01/31/18 23:52 Calculated Osmolality 283 MOSM/KG (261-280) H 02/01/18 05:06 Calcium 8.4 MG/DL (8.4-10.2) 02/01/18 05:06 Phosphorus 2.6 MG/DL (2.5-4.5) 01/24/18 04:33 Magnesium 1.9 MG/DL (1.6-2.3) 02/01/18 05:06 Total Bilirubin 0.30 MG/DL (0.20-1.30) 01/24/18 04:33 Conjugated Bilirubin 0.00 mg/dL (0.00-0.30) 01/24/18 04:33 Unconjugated Bilirubin 0.00 mg/dL (0.00-1.1) 01/24/18 04:33 Icterus Index < 2 (0-7) 02/01/18 05:06 AST 31 U/L (14-36) D 01/24/18 04:33 ALT 8 U/L (1-35) 01/24/18 04:33 Alkaline Phosphatase 106 U/L (38-126) D 01/24/18 04:33 NT-Pro-B Natriuret Pep 3580 pg/mL (0-175) H 01/22/18 16:32 Total Protein 6.2 g/dL (6.3-8.2) L 01/24/18 04:33 Albumin 3.0 g/dL (3.5-5.0) L 01/24/18 04:33 Globulin 3.2 G/DL (2.4-3.6) 01/24/18 04:33 Albumin/Globulin Ratio 0.9 RATIO (1.1-2.2) L 01/24/18 04:33 Plasma Lactate 1.6 MMOL/L (0.6-2.2) 02/01/18 08:05 Procalcitonin 19.72 NG/ML H* 02/01/18 08:05 Specimen Hemolysis < 15 (0-25) 02/01/18 05:06 Intake and Output 01/31/18 02/01/18 02/02/18 06:59 06:59 06:59 Intake Total 2071.667 / 2071.667 2105 / 2105 100 / 100 Balance 2071.667 / 2071.667 2105 / 2105 100 / 100 Weight 54.5 kg 54.8 kg 54.1 kg Intake: IV 2071.667 / 2071.667 2105 / 2105 100 / 100 Ceftriaxone 1 g In Ns 100 ml @ 100 / 100 100 / 100 200 mls/hr IV Q24H [facility] Rx#: [id number] Lidocaine 1% Inj 10 mg 365 / 365 Potassium Chloride Inj 10 meq In Ns 100 ml @ 100 mls/hr IV . Q1H [facility] Rx#:[id number] Piperacillin/Tazobactam 3.375 100 / 100 gm In Ns 100 ml @ 200 mls/hr IV Q6H [facility] Rx#:[id number] Potassium Chloride Inj 20 meq 1971.667 / 2368.125 9279 / 1640 In D5w 1,000 ml @ 50 mls/hr IV .[id number] [facility] Rx#:[id number] Other: Stool Color Brown Brown Yellow Green Stool Consistency Soft Loose Size of Bowel Movement Moderate Large # Incontinent Voids 1 1 1 # Bowel Movements 1 # Incontinent Bowel Movements 1 - Consult Information PPN Day 2: Lytes ok except for increased sodium and increased osmolality. Will add 250ml of free water to PPN today. Switching to a custom bag is also an option to consider tomorrow. Will continue to monitor. Thank you.
--- NOTE | 2018-02-01 12:55 | Progress Note ---
- Date 02/01/18 Subjective: Mrs. Robledo is an 82 y/o w/ severe Parkinson's, HTN, arthritis and other medical issues who is currently cared for at home by her family as well as home hospice who is brought in by EMS on 01/22/18 d/t decreasing responsiveness and shortness of breath. The patient was seen by hospice nurse, and she was unresponsive and apparently had not been out of bed since the previous Friday and has not been taking po. The patient's son and desired that EMS be contacted and that patient be transported to the ED at [facility] for evaluation. In ER, she had temp of 101.6 F, tachycardic w/ HR in the 140s, lactate of 2.8, Na = 161, BUN/Cr = 61/2.1, WBC =16.2. Influenza negative, NS x 2 L given, and CXR showed likely bilateral lower lobe pneumonia so Rocephin and Azithromycin IV given in ER. Per ER physician's report, patient has a DNR and will remain a DNR per patient's family's request however patient's family would like for the pneumonia to be treated and patient to be admitted to the hospital. Patient on oxygen therapy as she was noted to be hypoxic. Currently 6 L/min HF NC place over the mouth as she is a mouth breather. Patient's fluids were changed from NS to LR which is running currently at 100 cc/hour. Patient to be admitted to the Hospitalist service for further evaluation and management. History obtained from ER physician and notes, as patient is minimally responsive and patient's family left the ER to return home once patient was accepted to the medical floor. When seen by me this am, she opens eyes to my voice. When I asked her how she was she was able to say fine. I asked her if she was hurting anywhere and she said no. She also responded no to if she felt more short of breath. She has a bit more tremor today then she has been having. She also appears a bit more ill than she has. Her was in the room when I arrived. I did tell him that she looks worse today and her labs are worse today. She continues to be on only 1 L of oxygen however with good saturations. Her chest x-ray yesterday showed a stable right pleural effusion but worsening pulmonary edema. He did remember that he is meeting with an line up worker tomorrow to try to get guardianship. Objective Vital signs: Temperature 97.8 F 02/01/18 08:00 Pulse Rate 85 02/01/18 08:00 Respiratory Rate 24 02/01/18 08:00 Blood Pressure 136/79 02/01/18 08:00 Pulse Oximetry 95 02/01/18 12:07 Height/Weight/BMI: Height 1.57 m Weight 54.1 kg Body Mass Index 20.7 Comments: Gen: awakens, actually saying a few words this morning. She is having more tremors today than she has had since I've been seeing her. Skin: warm and dry. Legs are mildly mottled. HEENT: NC/AT PERRL, EOMI, sclera, lids and conjunctiva wnl. dryMM. OP clear. Neck: Fairly rigid, No JVD, Carotids 2+ without bruits. Lungs: diminished R>>L. crackles on right. No wheezes or rhonchi, shallow breaths. Heart: regular. No murmur, rub or gallop. Abdomen: soft. NT/ND, +BS MS: Generalized muscle weakness, No edema Neuro: No apparent focal deficit but difficult to test Psy: Not assessable Results - Labs CBC & Chem 7: 02/01/18 04:24 02/01/18 05:06 Microbiology Results: Microbiology 02/01/18 08:11 Peripheral/Iv Start Gram Stain - Final Not performed 02/01/18 08:11 Peripheral/Iv Start Blood Culture - Preliminary Culture Initiated - Results Pending 02/01/18 08:05 Peripheral/Iv Start Gram Stain - Final Not performed 02/01/18 08:05 Peripheral/Iv Start Blood Culture - Preliminary Culture Initiated - Results Pending Assessment and Plan Assessment and Plan: Assessment/Plan: Severe sepsis (POA) -Intermittent fevers, Tmax yesterday 100.4 at 1500 -WBC markedly up today at 23,000 and bands up to 7 -Stable right effusion but worsening pulm edema per CXR 01/31/18 -switched antibiotics to Vanco and Zosyn -I have repeated blood cultures. -Procalcitonin is 19.72 Bilateral Pneumonia (POA) -No CXR evidence of pna on CXR 01/30/18 -change to vancomycin and Zosyn Right pleural effusion (POA) -Worsening on CXR 01/30/18 -May need to have pulmonology see her for possible tap of the right pleural effusion -IV fluids stopped with the addition of PPN Acute Hypoxia -Requiring 1 liter via NC Severe Parkinson's disease - was on home hospice - however patient's family desires treatment of pneumonia and hospitalization -This is end stage. Her prognosis is very poor. Acute Encephalopathy -minimally verbal, follows some commands Acute Kidney injury in setting of CKD (POA) -resolved Hypernatremia (POA) -Normalized on D5W -slightly up today when D5W stopped, pharmacy to add free water to PPN -Repeat labs in am Hypokalemia (Not POA) -Replaced and repeat labs Leukocytosis (POA) -markedly up today HTN history -Reasonable anemia -Fairly stable Osteoarthritis / Contractures Prophylaxis -On PPI, SQ heparin Pt has no legal DPOA -we are trying to get guardianship arranged This is a tough situation as she expressed desire to be hospice in 2015 when she was still able to speak for herself. With this admission, hospice was automatically revoked. Now, she does not have a DPOA that can make decisions for her and she is not communicating enough to state her wishes. I did speak with CM friday and apparently the is going to proceed with the local line up worker for guardianship. He is really struggling as to why he should have to do this. In the mean time, she is only a DNR so we are treating aggressively with increasing antibiotics, PPN. - Physician Narrative Narrative: Date: 02/01/18 Time: 1251 Hospital Course Summary Disclaimer: The visit summary below is not to be considered part of the above Progress Note. Hospital Course: 01/23/18 Admit to Hospitalist service Received 30 cc/kg bolus of NS - now fluids changed to LR running at 100 cc/hour Labs in the AM Oxygen therapy to keep sats > 90% RT consult Social Work consult Patient remains DNR Blood Cultures pending SCDs Rocephin 1gram IV q 24 hours Azithromycin 500mg IV q 24 hours Protonix 40mg IV q 24 hours Tylenol suppository prn as directed MSO4 prn as directed NPO - o/p swabs if needed 01/24 Sodium increasing - will start 1/2NS at 100cc/hr for hydration and to improve serum sodium. Continue Rocephin 1gram IV q 24 hours and azithromycin 500mg IV q 24 hours for pulmonary coverage. Supportive O2 as needed. MS for pain. 01/25 Persistent Hypernatremia despite IV fluids - Change fluid to D5W at 100ml/hr Continue with Rocephin and Azithromycin for antimicrobial coverage Continues therapeutic NPO Overall status is concerning. Likely need to discuss assistant terminal manager plan with family. Possibly need to return to hospice/comfort care 01/26 Sodium has begun to slightly trend down- 164 Continue with IV fluids for hydration- D5W Speech consult to evaluate swallow Continue with Rocephin and Azithromycin for pulmonary antimicrobial coverage Continue to follow labs- Leukocytosis is trending down- WBC 14.7 Wean O2 as able 01/27 Not seeing clinical improvement. Met with Hospice nurses, CM/MARCO ANTONIO from [facility] and family about care goals. Family in process of processing options. Sodium with decrease to 156 and potassium decreased to 3.0. Renal status improved. Will change IVF to D5W with 20 KCl at 100cc/hr. WBC with slight decrease to 14.0. Continue Rocephin but could stop azithromycin after today's last dose. 01/28 No significant clinical improvement. Sodium with decrease to 149 from 156 yesterday. WBC with slight elevation to 14.6. CXR showing increase of right effusion. Continue IVF to help improve sodium. Continue Rocephin; may stop azithromycin as course completed. Palliative meeting arranged with family this evening to discuss course of care. 01/29 Persistent leukocytosis and hypernatremia At this point, we'll continue with IV fluids for hydration given her diminished oral intake Palliative care discussion yesterday with Dr. Gutierrez and presence of and family friend This was discussed further with case management today. Hopeful to determine discharge location, home versus facility today. Hopeful for discharge back to hospice tomorrow Further discussion with attending, Dr Blanton 01/30 Continues NPO Persistent leukocytosis and hypernatremia Continued IV fluids for hydration multiple conversations with BAILEY regarding plan No legal DPOA
[2018-02-01] MEDS: MULTI VIT INFUSION IV SCH (15:04)
[2018-02-01] MEDS: WATER FOR INJECTION IV SCH (15:04)
[2018-02-01] MEDS: MULTI TRACE ELEMENTS IV SCH (15:04)
[2018-02-01] MEDS: [UNRECOGNIZED DRUG - OTHER] IV SCH (15:04)
[2018-02-01] MEDS: FAT EMULSION 20% 500 ML BAG IV SCH (16:18)
[2018-02-01] MEDS: MORPHINE SULFATE 4mg INJECTION IVP PRN (19:18)
[2018-02-01] MEDS: NS FLUSH BAG 500ml IV PRN (20:26)
[2018-02-01] MEDS: DOCUSATE SODIUM 100 MG CAPSULE PO SCH (20:38)
[2018-02-02] MEDS: PIPERACILLIN/TAZOBACTAM 3.375 GM in NS 100 ML IV SCH ×4 (02:28→21:13)
[2018-02-02] MEDS: MULTI-VIT INFUSION 10 ML, MULTI-TRACE ELEMENTS 1 ML in PPN - STANDARD FORMULA 2,000 ML IV SCH (06:43)
--- NOTE | 2018-02-02 08:42 | Progress Note ---
- Date 02/02/18 Subjective: Shantal is seen this morning in follow up. She is currently on 1 liter of oxygen. She is noted to have some upper airway noise despite oral suction. She remains non-verbal. She remains afebrile and BP is stable. NPO status. Objective Vital signs: Temperature 97.4 F 02/02/18 08:00 Pulse Rate 88 02/02/18 08:00 Respiratory Rate 24 02/02/18 08:00 Blood Pressure 145/81 H 02/02/18 08:00 Pulse Oximetry 94 02/02/18 08:00 Height/Weight/BMI: Height 1.57 m Weight 53.8 kg Body Mass Index 20.7 - Constitutional Present: mild distress - Routine HEENT Exam ENT: Present: mucous membranes dry - Routine Respiratory Exam Present: wheezes, diminished air movement - Routine Cardiovascular Exam Present: RRR, S1, S2 - Routine Abdominal Exam Present: soft. Absent: normoactive bowel sounds (hypoactive) - Routine Extremities Exam Present: edema (trace bilateral lower ext) - Routine Skin Exam Present: intact, dry, warm - Routine Neurological Exam Present: alert, altered mental status (Non verbal) - Routine Psychiatric Exam Present: unable to assess Results - Labs CBC & Chem 7: 02/02/18 07:02 02/02/18 07:02 Microbiology Results: Microbiology 02/01/18 08:11 Peripheral/Iv Start Blood Culture - Preliminary No Growth After 1 Day 02/01/18 08:05 Peripheral/Iv Start Blood Culture - Preliminary No Growth After 1 Day Assessment and Plan Assessment and Plan: Assessment Severe sepsis (POA)- Resolved Bilateral Pneumonia (POA)- Resolved Right pleural effusion (POA) Acute Hypoxia- requiring 1 liter Leukocytosis- Persistent Acute Encephalopathy- stable Hypernatremia- POA- Resolved Hypokalemia- POA- Resolved Acute Kidney injury in setting of CKD- Resolved Severe Parkinson's disease HTN history Anemia OA Plan has a meeting with tax attorney today to obtain guardianship today At that point will be able to coordinate ongoing plan.- home on hospice, facility, etc. In the mean time will continue with treatment - Zosyn and vancomycin for antimicrobial coverage Continued breathing tx, oxygen and suction as needed PPN for hydration and nutritional support. Persistent leukocytosis Will continue to follow daily labs Case discussed with attending, Dr Yanelis CM and nursing staff DVT Prophylaxis: SCD's Resuscitation Status: Do Not Resuscitate - Time spent with patient Time with patient PN: 25 minutes - Physician Narrative Physician: Edgar Hilario MD Narrative: Date: 02/02/18 Time: 1655 Have independently interviewed and examined pt. Chart reviewed. Case discussed with my TRACKMAN. Care plan developed with my supervision; agree with above. Resting in bed. Will flicker eyes open to verbal stimuli. Nonverbal. Not moving ext. Breathing shallow and unlabored. Lungs: decreased breath sounds CV: regular AB: soft nt, BS decreased MSE: obtunded Plan: Will continue with IV antibiotic and PPN for nutritional support. WBC still elevated. Sodium with improvement. Clinically not seeing any improvement. working on guardianship arrangement. Hospital Course Summary Disclaimer: The visit summary below is not to be considered part of the above Progress Note. Hospital Course: 01/23/18 Admit to Hospitalist service Received 30 cc/kg bolus of NS - now fluids changed to LR running at 100 cc/hour Labs in the AM Oxygen therapy to keep sats > 90% RT consult Social Work consult Patient remains DNR Blood Cultures pending SCDs Rocephin 1gram IV q 24 hours Azithromycin 500mg IV q 24 hours Protonix 40mg IV q 24 hours Tylenol suppository prn as directed MSO4 prn as directed NPO - o/p swabs if needed 01/24 Sodium increasing - will start 1/2NS at 100cc/hr for hydration and to improve serum sodium. Continue Rocephin 1gram IV q 24 hours and azithromycin 500mg IV q 24 hours for pulmonary coverage. Supportive O2 as needed. MS for pain. 01/25 Persistent Hypernatremia despite IV fluids - Change fluid to D5W at 100ml/hr Continue with Rocephin and Azithromycin for antimicrobial coverage Continues therapeutic NPO Overall status is concerning. Likely need to discuss snf plan with family. Possibly need to return to hospice/comfort care 01/26 Sodium has begun to slightly trend down- 164 Continue with IV fluids for hydration- D5W Speech consult to evaluate swallow Continue with Rocephin and Azithromycin for pulmonary antimicrobial coverage Continue to follow labs- Leukocytosis is trending down- WBC 14.7 Wean O2 as able 01/27 Not seeing clinical improvement. Met with Hospice nurses, CM/SW from [facility] and family about care goals. Family in process of processing options. Sodium with decrease to 156 and potassium decreased to 3.0. Renal status improved. Will change IVF to D5W with 20 KCl at 100cc/hr. WBC with slight decrease to 14.0. Continue Rocephin but could stop azithromycin after today's last dose. 01/28 No significant clinical improvement. Sodium with decrease to 149 from 156 yesterday. WBC with slight elevation to 14.6. CXR showing increase of right effusion. Continue IVF to help improve sodium. Continue Rocephin; may stop azithromycin as course completed. Palliative meeting arranged with family this evening to discuss course of care. 01/29 Persistent leukocytosis and hypernatremia At this point, we'll continue with IV fluids for hydration given her diminished oral intake. Palliative care discussion yesterday with Dr. Gutierrez and presence of and family friend. This was discussed further with case management today. Hopeful to determine discharge location, home versus facility today. Hopeful for discharge back to hospice tomorrow. 01/30 Continues NPO. Persistent leukocytosis and hypernatremia. Continued IV fluids for hydration. Multiple conversations with CM regarding plan. No legal DPOA. 01/31 This is a tough situation as she expressed desire to be hospice in 2015 when she was still able to speak for herself. With this admission, hospice was automatically revoked. Now, she does not have a DPOA that can make decisions for her and she is not communicating enough to state her wishes. I did speak with CM today and apparently the was in with a friend who works at a local law office and is going to help the initiate guardianship paperwork. In the mean time, she is only a DNR so ideally we should start feeding her. I will try to initiate PPN. If that gets going we will stop the IVF all together. 02/01 WBC with increase from 16.1 to 23.2, will change antibiotics to vancomycin and Zosyn. 02/02 has a meeting with tax attorney today to obtain guardianship today. At that point will be able to coordinate ongoing plan.- home on hospice, facility, etc. In the mean time will continue with treatment -- Zosyn and vancomycin for antimicrobial coverage. Continued breathing tx, oxygen and suction as needed. PPN for hydration and nutritional support. Persistent leukocytosis but showing decrease from yesterday. Will continue to follow daily labs.
[2018-02-02] MEDS: DULOXETINE 30 MG CAPSULE PO SCH (08:58)
[2018-02-02] MEDS: SENNOSIDES 8.6 MG TABLET PO SCH (08:58)
[2018-02-02] MEDS: PANTOPRAZOLE 40 MG INJECTION IVP SCH (09:15)
[2018-02-02] MEDS: HEPARIN SUB-Q 5,000units/0.5ml INJECTION SQ SCH ×2 (09:15→21:12)
[2018-02-02] MEDS: Hyoscyamine 0.125mg Sublingual tab PO PRN ×2 (09:15→15:32)
[2018-02-02] MEDS: SALINE FLUSH 10ml SYRINGE IVF PRN ×2 (09:15→15:37)
--- NOTE | 2018-02-02 09:31 | Pharmacy Consult-TPN/PPN ---
Pharmacy Consult-TPN/PPN - Laboratory Information Chemistry Turbidity < 20 (0-20) 02/02/18 07:02 Sodium 141 MEQ/L (134-144) D 02/02/18 07:02 Potassium 4.8 MEQ/L (3.6-5) 02/02/18 07:02 Chloride 104 MEQ/L (98-107) 02/02/18 07:02 Carbon Dioxide 29 MEQ/L (22-30) 02/02/18 07:02 Anion Gap 8 meq/L (5-15) 02/02/18 07:02 BUN 20.0 MG/DL (7-17) H D 02/02/18 07:02 Creatinine 0.7 mg/dL (0.7-1.2) 02/02/18 07:02 GFR Calculation 80 02/02/18 07:02 BUN/Creatinine Ratio 29 RATIO (6-26) H 02/02/18 07:02 Glucose 111 MG/DL (65-110) H 02/02/18 07:02 Glucometer 102 mg/dL (65-110) 02/02/18 06:08 Calculated Osmolality 275 MOSM/KG (261-280) 02/02/18 07:02 Calcium 7.9 MG/DL (8.4-10.2) L 02/02/18 07:02 Phosphorus 4.6 MG/DL (2.5-4.5) H 02/02/18 07:02 Magnesium 1.9 MG/DL (1.6-2.3) 02/01/18 05:06 Total Bilirubin 0.30 MG/DL (0.20-1.30) 01/24/18 04:33 Conjugated Bilirubin 0.00 mg/dL (0.00-0.30) 01/24/18 04:33 Unconjugated Bilirubin 0.00 mg/dL (0.00-1.1) 01/24/18 04:33 Icterus Index < 2 (0-7) 02/02/18 07:02 AST 31 U/L (14-36) D 01/24/18 04:33 ALT 8 U/L (1-35) 01/24/18 04:33 Alkaline Phosphatase 106 U/L (38-126) D 01/24/18 04:33 NT-Pro-B Natriuret Pep 3580 pg/mL (0-175) H 01/22/18 16:32 Total Protein 6.2 g/dL (6.3-8.2) L 01/24/18 04:33 Albumin 3.0 g/dL (3.5-5.0) L 01/24/18 04:33 Globulin 3.2 G/DL (2.4-3.6) 01/24/18 04:33 Albumin/Globulin Ratio 0.9 RATIO (1.1-2.2) L 01/24/18 04:33 Plasma Lactate 0.9 MMOL/L (0.6-2.2) 02/01/18 12:03 Procalcitonin 19.72 NG/ML H* 02/01/18 08:05 Specimen Hemolysis < 15 (0-25) 02/02/18 07:02 Intake and Output 02/01/18 02/02/18 02/03/18 06:59 06:59 06:59 Intake Total 2104 / 2104 3161 / 3161 Balance 2104 / 2104 3161 / 3161 Weight 54.8 kg 54.1 kg 53.8 kg Intake: IV 210 / 2104 3161 / 3161 Ceftriaxone 1 g In Ns 100 ml @ 100 / 100 200 mls/hr IV Q24H [facility] Rx#: [id number] Lidocaine 1% Inj 10 mg 365 / 365 Potassium Chloride Inj 10 meq In Ns 100 ml @ 100 mls/hr IV . Q1H [facility] Rx#:[id number] Multi-Vit Infusion 10 ml Multi 2010 -Trace Elements 1 ml In Ppn - Standard Formula 2,000 ml @ 85 mls/hr IV .[id number] [facility] Rx#: [id number] Piperacillin/Tazobactam 3.375 400 / 400 gm In Ns 100 ml @ 200 mls/hr IV Q6H [facility] Rx#:[id number] Potassium Chloride Inj 20 meq 1640 / 1640 In D5w 1,000 ml @ 50 mls/hr IV .[id number] [facility] Rx#:[id number] Vancomycin 1,250 mg In NS 250ml 250 / 250 250 ml @ 200 mls/hr IV Q18H [facility] Rx#:[id number] Vancomycin 1,500 mg In NS 500ml 500 / 500 500 ml @ 250 mls/hr IV [facility] Rx#:[id number] Other: Stool Color Brown Brown Yellow Green Stool Consistency Loose Soft Size of Bowel Movement Large Moderate # Incontinent Voids 1 1 # Incontinent Bowel Movements 1 1 - Consult Information TPN/PPN consult day 3: Sodium level has decreased with additional 250 ml of water added to standard formula PPN. Phos. level is slightly elevated at 4.6. Will order another Phos level for Friday and make adjustments if needed. Continue current PPN formula and rate. Thank you, Leyda Carrera, [facility] current PPN formula/bag amino acid 10% 1000 ml Dextrose 10% 1000 ml sodium 70 MEQ Potassium 60 MEQ Magnesium 10 MEQ Calcium 9 MEQ Acetate 140 MEQ Chloride 78 MEQ Phos 30 mmol MVI 10 ml Trace 1 ml sterile water 250 ml
[2018-02-02 10:08] VITALS: BMI 21.7
[2018-02-02] MEDS: MULTI VIT INFUSION IV SCH (15:09)
[2018-02-02] MEDS: MULTI TRACE ELEMENTS IV SCH (15:09)
[2018-02-02] MEDS: [UNRECOGNIZED DRUG - OTHER] IV SCH (15:09)
[2018-02-02] MEDS: WATER FOR INJECTION IV SCH (15:09)
[2018-02-02] MEDS: FAT EMULSION 20% 500 ML BAG IV SCH (15:32)
[2018-02-03] MEDS: PIPERACILLIN/TAZOBACTAM 3.375 GM in NS 100 ML IV SCH ×2 (03:31→09:09)
[2018-02-03] MEDS: Hyoscyamine 0.125mg Sublingual tab PO PRN (03:35)
[2018-02-03] MEDS: SALINE FLUSH 10ml SYRINGE IVF PRN ×2 (09:08→18:23)
[2018-02-03] MEDS: PANTOPRAZOLE 40 MG INJECTION IVP SCH (09:08)
[2018-02-03] MEDS: HEPARIN SUB-Q 5,000units/0.5ml INJECTION SQ SCH ×2 (09:09→21:34)
--- NOTE | 2018-02-03 09:23 | Progress Note ---
- Date 02/03/18 Subjective: F/U: severe sepsis secondary to bilateral pneumonia with acute hypoxia. Shantal is seen this morning while sleeping in bed. Nursing is at the bedside. She awakens briefly and mumbles good morning but quickly falls back to sleep. Nursing denies any concerns. She appears comfortable, breathing easily on 1L NC. Labs revealed slight improvement in WBC (11.9) with slight decrease in hemoglobin (Hgb 8.7). Second set of blood cultures remain negative x 2 days. Blood sugar stable on TPN. Objective Vital signs: Temperature 96.9 F 02/03/18 07:00 Pulse Rate 77 02/03/18 08:00 Respiratory Rate 24 02/03/18 07:00 Blood Pressure 127/71 02/03/18 07:00 Pulse Oximetry 96 02/03/18 08:00 Rhythm: Sinus Tachycardia Height/Weight/BMI: Height 5 ft 2 in Weight 118 lb 9.739 oz Body Mass Index 21.7 Comments: Patient resting in bed with nursing at bedside. - Constitutional Present: no acute distress, thin, cooperative - Routine HEENT Exam Head: Present: normocephalic, atraumatic ENT: Present: mucous membranes dry - Routine Respiratory Exam Present: decreased breath sounds. Absent: respiratory distress Comments: Breathing easily on 1L NC. - Routine Cardiovascular Exam Present: S1, S2, tachycardia - Routine Abdominal Exam Present: soft, non tender Comments: Hypoactive bowel sounds. - Routine Extremities Exam Present: edema (trace), pulses intact Comments: SCDs in place. - Routine Skin Exam Present: dry, warm Comments: Afebrile. - Routine Neurological Exam Limited exam due to somnolence and non-verbal. - Routine Lymphatic Exam Lymphatic: Absent: lymphedema - Routine Psychiatric Exam Present: cooperative Results - Labs CBC & Chem 7: 02/03/18 03:59 02/03/18 03:59 Microbiology Results: Microbiology 02/01/18 08:11 Peripheral/Iv Start Blood Culture - Preliminary No Growth After 2 Days 02/01/18 08:05 Peripheral/Iv Start Blood Culture - Preliminary No Growth After 2 Days Assessment and Plan Assessment and Plan: Assessment Severe sepsis (POA)- Resolved Bilateral Pneumonia (POA)- Resolved Right pleural effusion (POA) Acute Hypoxia- requiring 1 liter Leukocytosis- Persistent Acute Encephalopathy- stable Hypernatremia- POA- Resolved Hypokalemia- POA- Resolved Acute Kidney injury in setting of CKD- Resolved Severe Parkinson's disease HTN history Anemia OA Plan - 02/03/18 was scheduled to meet with litigation attorney associate on 02/02/18 to obtain guardianship. Once guardianship is determined, will be able to coordinate ongoing plan - home on hospice, facility, etc. In the mean time will continue with treatment - Zosyn and vancomycin for antimicrobial coverage. Repeat blood cultures remain negative x 2 days. Patient afebrile. WBC trending down. Continue respiratory cares, breathing treatments, oxygen and suction as needed. Stable on 1L NC. PPN for hydration and nutritional support. - pharmacy managing. Blood sugars remain stable. Slight decrease in hemoglobin (Hgb 8.7). Continue to monitor. Repeat labs in AM to monitor blood counts, electrolytes and renal function. DVT Prophylaxis: SCD's GI Prophylaxis: Protonix Resuscitation Status: Do Not Resuscitate - Time spent with patient Time with patient PN: 25 minutes - Physician Narrative Physician: Edgar Hilario MD Narrative: Date: 02/03/18 Time: 1910 Have independently interviewed and examined pt. Chart reviewed. Case discussed with CM and my PA. Care plan developed with my supervision; agree with above. Resting in bed. Will open eyes. Not moving ext. Non verbal. Lungs: decreased, no distress on O2. CV: regular AB; soft nt/nd Plan: Continue Antibiotics and PPN. WBC decreasing and sodium improved. Not seeing any increase in responsiveness. Hospital Course Summary Disclaimer: The visit summary below is not to be considered part of the above Progress Note. Hospital Course: 01/23/18 Admit to Hospitalist service Received 30 cc/kg bolus of NS - now fluids changed to LR running at 100 cc/hour Labs in the AM Oxygen therapy to keep sats > 90% RT consult Social Work consult Patient remains DNR Blood Cultures pending SCDs Rocephin 1gram IV q 24 hours Azithromycin 500mg IV q 24 hours Protonix 40mg IV q 24 hours Tylenol suppository prn as directed MSO4 prn as directed NPO - o/p swabs if needed 01/24 Sodium increasing - will start 1/2NS at 100cc/hr for hydration and to improve serum sodium. Continue Rocephin 1gram IV q 24 hours and azithromycin 500mg IV q 24 hours for pulmonary coverage. Supportive O2 as needed. MS for pain. 01/25 Persistent Hypernatremia despite IV fluids - Change fluid to D5W at 100ml/hr Continue with Rocephin and Azithromycin for antimicrobial coverage Continues therapeutic NPO Overall status is concerning. Likely need to discuss fpc plan with family. Possibly need to return to hospice/comfort care 01/26 Sodium has begun to slightly trend down- 164 Continue with IV fluids for hydration- D5W Speech consult to evaluate swallow Continue with Rocephin and Azithromycin for pulmonary antimicrobial coverage Continue to follow labs- Leukocytosis is trending down- WBC 14.7 Wean O2 as able 01/27 Not seeing clinical improvement. Met with Hospice nurses, CM/SW from [facility] and family about care goals. Family in process of processing options. Sodium with decrease to 156 and potassium decreased to 3.0. Renal status improved. Will change IVF to D5W with 20 KCl at 100cc/hr. WBC with slight decrease to 14.0. Continue Rocephin but could stop azithromycin after today's last dose. 01/28 No significant clinical improvement. Sodium with decrease to 149 from 156 yesterday. WBC with slight elevation to 14.6. CXR showing increase of right effusion. Continue IVF to help improve sodium. Continue Rocephin; may stop azithromycin as course completed. Palliative meeting arranged with family this evening to discuss course of care. 01/29 Persistent leukocytosis and hypernatremia At this point, we'll continue with IV fluids for hydration given her diminished oral intake. Palliative care discussion yesterday with Dr. Gutierrez and presence of and family friend. This was discussed further with case management today. Hopeful to determine discharge location, home versus facility today. Hopeful for discharge back to hospice tomorrow. 01/30 Continues NPO. Persistent leukocytosis and hypernatremia. Continued IV fluids for hydration. Multiple conversations with CM regarding plan. No legal DPOA. 01/31 This is a tough situation as she expressed desire to be hospice in 2015 when she was still able to speak for herself. With this admission, hospice was automatically revoked. Now, she does not have a DPOA that can make decisions for her and she is not communicating enough to state her wishes. I did speak with CM today and apparently the was in with a friend who works at a local law office and is going to help the initiate guardianship paperwork. In the mean time, she is only a DNR so ideally we should start feeding her. I will try to initiate PPN. If that gets going we will stop the IVF all together. 02/01 WBC with increase from 16.1 to 23.2, will change antibiotics to vancomycin and Zosyn. 02/02 has a meeting with litigation attorney associate today to obtain guardianship today. At that point will be able to coordinate ongoing plan.- home on hospice, facility, etc. In the mean time will continue with treatment -- Zosyn and vancomycin for antimicrobial coverage. Continued breathing tx, oxygen and suction as needed. PPN for hydration and nutritional support. Persistent leukocytosis but showing decrease from yesterday. Will continue to follow daily labs. Plan - 02/03/18 was scheduled to meet with litigation attorney associate on 02/02/18 to obtain guardianship. Once guardianship is determined, will be able to coordinate ongoing plan - home on hospice, facility, etc. In the mean time will continue with treatment - Zosyn and vancomycin for antimicrobial coverage. Repeat blood cultures remain negative x 2 days. Patient afebrile. WBC trending down. Continue respiratory cares, breathing treatments, oxygen and suction as needed. Stable on 1L NC. PPN for hydration and nutritional support. - pharmacy managing. Blood sugars remain stable. Slight decrease in hemoglobin (Hgb 8.7). Continue to monitor. Repeat labs in AM to monitor blood counts, electrolytes and renal function.
--- NOTE | 2018-02-03 14:04 | Pharmacy Consult- Renal Dosing ---
[facility]-Renal Dosing - Laboratory Information 02/03/18 03:59 BUN 20.0 H Creatinine 0.7 - Consult Information RENAL DOSING: Today's SCr = 0.7 mg/dl. Calculated CrCl = 35 ml/min. I changed the Pip/Tazo from 3.375 to 2.25 g every 6 hours per Pharmacy Renal Monitoring and Adjustment Program. Thanks, Geoff Carranza, Pharmacy.
[2018-02-03] MEDS: MULTI TRACE ELEMENTS IV SCH (15:10)
[2018-02-03] MEDS: MULTI VIT INFUSION IV SCH (15:10)
[2018-02-03] MEDS: [UNRECOGNIZED DRUG - OTHER] IV SCH (15:10)
[2018-02-03] MEDS: WATER FOR INJECTION IV SCH (15:10)
[2018-02-03] MEDS: PIPERACILLIN/TAZOBACTAM 2.25 GM in NS 100 ML IV SCH ×2 (15:13→21:44)
[2018-02-03] MEDS: FAT EMULSION 20% 500 ML IV SCH (16:18)
[2018-02-04] MEDS: PIPERACILLIN/TAZOBACTAM 2.25 GM in NS 100 ML IV SCH ×4 (03:04→21:36)
[2018-02-04] MEDS: SALINE FLUSH 10ml SYRINGE IVF PRN (03:06)
--- NOTE | 2018-02-04 10:41 | Progress Note ---
- Date 02/04/18 Subjective: F/U: severe sepsis secondary to bilateral pneumonia with acute hypoxia. Shantal is seen this morning while resting in bed. Her daughter and are present and currently discussing future care options. She briefly arouses with voice stimulation and mumbles good morning but does not answer any other questions on exam. She appears to be breathing easily without cough or distress. Labs today revealed slight increase in WBC (12.7) and hemoglobin relatively stable at 8.6. Procalcitonin trending down at 3.60 and blood cultures remain negative x 3 days. Case management reports that the family continues to work through establishing DPOA and guardianship. Objective Vital signs: Temperature 99.6 F 02/04/18 07:50 Pulse Rate 83 02/04/18 10:00 Respiratory Rate 20 02/04/18 07:50 Blood Pressure 149/72 H 02/04/18 07:50 Pulse Oximetry 97 02/04/18 10:00 Rhythm: Normal Sinus Rhythm Height/Weight/BMI: Height 5 ft 2 in Weight 121 lb 4.068 oz Body Mass Index 21.7 Comments: Sleeping in bed; arouses briefly but quickly falls back to sleep. - Constitutional Present: no acute distress, well developed, thin - Routine HEENT Exam Head: Present: normocephalic, atraumatic Eye: Present: PERRL. Absent: conjunctival icterus ENT: Present: mucous membranes dry - Routine Respiratory Exam Present: CTA bilaterally. Absent: respiratory distress, wheezes - Routine Cardiovascular Exam Present: RRR, S1, S2 - Routine Abdominal Exam Present: soft, non tender Comments: Hypoactive bowel sounds. - Routine Extremities Exam Present: edema (trace), pulses intact - Routine Musculoskeletal Exam Musculoskeletal: Present: no clubbing or cyanosis - Routine Skin Exam Present: dry, warm Comments: Off and on low grade fevers. - Routine Neurological Exam Present: hearing grossly intact Somnolent. - Routine Lymphatic Exam Lymphatic: Absent: lymphedema - Routine Psychiatric Exam Present: cooperative Results - Labs CBC & Chem 7: 02/04/18 08:29 02/04/18 08:29 Microbiology Results: Microbiology 02/01/18 08:11 Peripheral/Iv Start Blood Culture - Preliminary No Growth After 3 Days 02/01/18 08:05 Peripheral/Iv Start Blood Culture - Preliminary No Growth After 3 Days Assessment and Plan Assessment and Plan: Assessment Severe sepsis (POA)- Resolved Bilateral Pneumonia (POA)- Resolved Right pleural effusion (POA) Acute Hypoxia- requiring 1 liter Leukocytosis- Persistent Acute Encephalopathy- stable Hypernatremia- POA- Resolved Hypokalemia- POA- Resolved Acute Kidney injury in setting of CKD- Resolved Severe Parkinson's disease HTN history Anemia OA Plan - 02/04/18 Family continues to work on establishing a DPOA/guardianship. Once guardianship is determined, will be able to coordinate ongoing plan - home on hospice, facility, etc. In the mean time will continue with treatment - Zosyn and vancomycin for antimicrobial coverage. Repeat blood cultures remain negative x 3 days. Off and on low grade fevers noted. Slight increase in WBC at 12.7 (up from 11.9). Will continue to monitor. Continue respiratory cares, breathing treatments, and suction as needed. Patient weaned to room air and breathing easily. Oxygen as needed. PPN for hydration and nutritional support. - pharmacy managing. Blood sugars remain stable. Slight decrease in hemoglobin (Hgb 8.7). Continue to monitor. Repeat labs in AM to monitor blood counts, electrolytes and renal function. DVT Prophylaxis: SCD's GI Prophylaxis: Protonix Resuscitation Status: Do Not Resuscitate - Time spent with patient Time with patient PN: 25 minutes - Physician Narrative Physician: Edgar Hilario MD Narrative: Date: 02/04/18 Time: 1934 Have independently interviewed and examined pt. Chart reviewed. Case discussed with CM and my PA. care plan developed with my supervision; agree with above. Resting in bed. Little change. Not verbally responsive. Will flicker eyes. Lungs; decrease, but stable air movement CV: regular AB: soft nt Plan: Continue with PPN and antibiotic support. Prognosis poor. Hospital Course Summary Disclaimer: The visit summary below is not to be considered part of the above Progress Note. Hospital Course: 01/23/18 Admit to Hospitalist service Received 30 cc/kg bolus of NS - now fluids changed to LR running at 100 cc/hour Labs in the AM Oxygen therapy to keep sats > 90% RT consult Social Work consult Patient remains DNR Blood Cultures pending SCDs Rocephin 1gram IV q 24 hours Azithromycin 500mg IV q 24 hours Protonix 40mg IV q 24 hours Tylenol suppository prn as directed MSO4 prn as directed NPO - o/p swabs if needed 01/24 Sodium increasing - will start 1/2NS at 100cc/hr for hydration and to improve serum sodium. Continue Rocephin 1gram IV q 24 hours and azithromycin 500mg IV q 24 hours for pulmonary coverage. Supportive O2 as needed. MS for pain. 01/25 Persistent Hypernatremia despite IV fluids - Change fluid to D5W at 100ml/hr Continue with Rocephin and Azithromycin for antimicrobial coverage Continues therapeutic NPO Overall status is concerning. Likely need to discuss usp plan with family. Possibly need to return to hospice/comfort care 01/26 Sodium has begun to slightly trend down- 164 Continue with IV fluids for hydration- D5W Speech consult to evaluate swallow Continue with Rocephin and Azithromycin for pulmonary antimicrobial coverage Continue to follow labs- Leukocytosis is trending down- WBC 14.7 Wean O2 as able 01/27 Not seeing clinical improvement. Met with Hospice nurses, CM/SW from [facility] and family about care goals. Family in process of processing options. Sodium with decrease to 156 and potassium decreased to 3.0. Renal status improved. Will change IVF to D5W with 20 KCl at 100cc/hr. WBC with slight decrease to 14.0. Continue Rocephin but could stop azithromycin after today's last dose. 01/28 No significant clinical improvement. Sodium with decrease to 149 from 156 yesterday. WBC with slight elevation to 14.6. CXR showing increase of right effusion. Continue IVF to help improve sodium. Continue Rocephin; may stop azithromycin as course completed. Palliative meeting arranged with family this evening to discuss course of care. 01/29 Persistent leukocytosis and hypernatremia At this point, we'll continue with IV fluids for hydration given her diminished oral intake. Palliative care discussion yesterday with Dr. Gutierrez and presence of and family friend. This was discussed further with case management today. Hopeful to determine discharge location, home versus facility today. Hopeful for discharge back to hospice tomorrow. 01/30 Continues NPO. Persistent leukocytosis and hypernatremia. Continued IV fluids for hydration. Multiple conversations with CM regarding plan. No legal DPOA. 01/31 This is a tough situation as she expressed desire to be hospice in 2015 when she was still able to speak for herself. With this admission, hospice was automatically revoked. Now, she does not have a DPOA that can make decisions for her and she is not communicating enough to state her wishes. I did speak with CM today and apparently the was in with a friend who works at a local law office and is going to help the initiate guardianship paperwork. In the mean time, she is only a DNR so ideally we should start feeding her. I will try to initiate PPN. If that gets going we will stop the IVF all together. 02/01 WBC with increase from 16.1 to 23.2, will change antibiotics to vancomycin and Zosyn. 02/02 has a meeting with cable [employer] today to obtain guardianship today. At that point will be able to coordinate ongoing plan.- home on hospice, facility, etc. In the mean time will continue with treatment -- Zosyn and vancomycin for antimicrobial coverage. Continued breathing tx, oxygen and suction as needed. PPN for hydration and nutritional support. Persistent leukocytosis but showing decrease from yesterday. Will continue to follow daily labs. Plan - 02/03/18 was scheduled to meet with [employer] we[employer] on 02/02/18 to obtain guardianship. Once guardianship is determined, will be able to coordinate ongoing plan - home on hospice, facility, etc. In the mean time will continue with treatment - Zosyn and vancomycin for antimicrobial coverage. Repeat blood cultures remain negative x 2 days. Patient afebrile. WBC trending down. Continue respiratory cares, breathing treatments, oxygen and suction as needed. Stable on 1L NC. PPN for hydration and nutritional support. - pharmacy managing. Blood sugars remain stable. Slight decrease in hemoglobin (Hgb 8.7). Continue to monitor. Repeat labs in AM to monitor blood counts, electrolytes and renal function. Plan - 02/04/18 Family continues to work on establishing a DPOA/guardianship. Once guardianship is determined, will be able to coordinate ongoing plan - home on hospice, facility, etc. In the mean time will continue with treatment - Zosyn and vancomycin for antimicrobial coverage. Repeat blood cultures remain negative x 3 days. Off and on low grade fevers noted. Slight increase in WBC at 12.7 (up from 11.9). Will continue to monitor. Continue respiratory cares, breathing treatments, and suction as needed. Patient weaned to room air and breathing easily. Oxygen as needed. PPN for hydration and nutritional support. - pharmacy managing. Blood sugars remain stable. Slight decrease in hemoglobin (Hgb 8.7). Continue to monitor. Repeat labs in AM to monitor blood counts, electrolytes and renal function.
[2018-02-04] MEDS: PANTOPRAZOLE 40 MG INJECTION IVP SCH (10:50)
[2018-02-04] MEDS: HEPARIN SUB-Q 5,000units/0.5ml INJECTION SQ SCH ×2 (10:50→21:23)
--- NOTE | 2018-02-04 13:27 | Pharmacy Consult-TPN/PPN ---
Pharmacy Consult-TPN/PPN - Laboratory Information Chemistry Turbidity < 20 (0-20) 02/04/18 08:29 Sodium 139 MEQ/L (134-144) 02/04/18 08:29 Potassium 3.7 MEQ/L (3.6-5) 02/04/18 08:29 Chloride 102 MEQ/L (98-107) 02/04/18 08:29 Carbon Dioxide 27 MEQ/L (22-30) 02/04/18 08:29 Anion Gap 10 meq/L (5-15) 02/04/18 08:29 BUN 18.0 MG/DL (7-17) H 02/04/18 08:29 Creatinine 0.7 mg/dL (0.7-1.2) 02/04/18 08:29 GFR Calculation 80 02/04/18 08:29 BUN/Creatinine Ratio 26 RATIO (6-26) 02/04/18 08:29 Glucose 116 MG/DL (65-110) H 02/04/18 08:29 Glucometer 123 mg/dL (65-110) 02/04/18 05:53 Calculated Osmolality 271 MOSM/KG (261-280) 02/04/18 08:29 Calcium 8.2 MG/DL (8.4-10.2) L 02/04/18 08:29 Phosphorus 4.6 MG/DL (2.5-4.5) H 02/02/18 07:02 Magnesium 1.9 MG/DL (1.6-2.3) 02/01/18 05:06 Total Bilirubin 0.30 MG/DL (0.20-1.30) 01/24/18 04:33 Conjugated Bilirubin 0.00 mg/dL (0.00-0.30) 01/24/18 04:33 Unconjugated Bilirubin 0.00 mg/dL (0.00-1.1) 01/24/18 04:33 Icterus Index < 2 (0-7) 02/04/18 08:29 AST 31 U/L (14-36) D 01/24/18 04:33 ALT 8 U/L (1-35) 01/24/18 04:33 Alkaline Phosphatase 106 U/L (38-126) D 01/24/18 04:33 NT-Pro-B Natriuret Pep 3580 pg/mL (0-175) H 01/22/18 16:32 Total Protein 6.2 g/dL (6.3-8.2) L 01/24/18 04:33 Albumin 3.0 g/dL (3.5-5.0) L 01/24/18 04:33 Globulin 3.2 G/DL (2.4-3.6) 01/24/18 04:33 Albumin/Globulin Ratio 0.9 RATIO (1.1-2.2) L 01/24/18 04:33 Plasma Lactate 0.9 MMOL/L (0.6-2.2) 02/01/18 12:03 Procalcitonin 3.60 NG/ML H* 02/04/18 08:29 Specimen Hemolysis < 15 (0-25) 02/04/18 08:29 Intake and Output 02/03/18 02/04/18 02/05/18 06:59 06:59 06:59 Intake Total 2697.083 / 2697.083 3083.500 / 3083.500 1593.75 / 1593.75 Balance 2697.083 / 2697.083 3083.500 / 3083.500 1593.75 / 1593.75 Weight 53.8 kg 52.9 kg 55 kg Intake: IV 2697.083 / 2697.083 3083.500 / 3083.500 1593.75 / 1593.75 Fat Emulsion 20% 500 ml @ 50 500.000 / 500.000 mls/hr IV 1600 [facility] Rx#: [id number] Multi-Vit Infusion 10 ml Multi 2047.083 / 2047.083 1933.50 / 1933.50 1243.75 / 1243.75 -Trace Elements 1 ml Water For Injection 250 ml In Ppn - Standard Formula 2,000 ml @ 75 mls/hr IV .Q24H [facility] Rx#: [id number] Piperacillin/Tazobactam 2.25 gm 300 / 300 100 / 100 In Ns 100 ml @ 200 mls/hr IV Q6H [facility] Rx#:[id number] Piperacillin/Tazobactam 3.375 400 / 400 100 / 100 gm In Ns 100 ml @ 200 mls/hr IV Q6H [facility] Rx#:[id number] Vancomycin 1,250 mg In NS 250ml 250 / 250 250 / 250 250 / 250 250 ml @ 200 mls/hr IV Q18H [facility] Rx#:[id number] Other: Urine Color Yellow Yellow Stool Color Brown Stool Consistency Loose Size of Bowel Movement Moderate # Incontinent Voids 1 1 1 # Incontinent Bowel Movements 1 - Consult Information TPN CONSULT: Patient'S osmolality is back in the normal range at 271. No further need for added water to the PPN so it has been adjusted by removing the 250 ml extra water. Rate remains the same. Electrolyes sodium, potassium and chloride all within normal range. SrCr = 0.7. Rate still at 75 ml/hr. Patient still on 20% lipids. Pharmacy will continue to monitor and adjust PPN. Thank you. Fartun Mendez, PharmD
[2018-02-04] MEDS ORDERED: MULTI-VIT INFUSION 10 ML, MULTI-TRACE ELEMENTS 1 ML in PPN - STANDARD FORMULA 2,000 ML IV SCH (15:00)
[2018-02-04] MEDS: [UNRECOGNIZED DRUG - OTHER] IV SCH (15:59)
[2018-02-04] MEDS: MULTI VIT INFUSION IV SCH (15:59)
[2018-02-04] MEDS: MULTI TRACE ELEMENTS IV SCH (15:59)
[2018-02-04] MEDS: WATER FOR INJECTION IV SCH (15:59)
[2018-02-04] MEDS: FAT EMULSION 20% 500 ML IV SCH (16:00)
[2018-02-05] MEDS: PIPERACILLIN/TAZOBACTAM 2.25 GM in NS 100 ML IV SCH ×4 (03:03→21:06)
[2018-02-05] MEDS: NS FLUSH BAG 500ml IV PRN (03:05)
[2018-02-05] MEDS: SALINE FLUSH 10ml SYRINGE IVF PRN ×2 (03:05→21:08)
[2018-02-05] MEDS: PANTOPRAZOLE 40 MG INJECTION IVP SCH (08:51)
[2018-02-05] MEDS: HEPARIN SUB-Q 5,000units/0.5ml INJECTION SQ SCH ×2 (08:51→21:06)
--- NOTE | 2018-02-05 10:24 | Progress Note ---
- Date 02/05/18 Subjective: F/U: severe sepsis secondary to bilateral pneumonia with acute hypoxia. Shantal is seen this morning sleeping in bed. She is breathing easily on room air without signs of distress. She is sleeping and arouses briefly with loud voice and touch stimuli but quickly falls back to sleep. Nursing reports that she had severe tremors this morning due to her Parkinson's and was given ativan IV with improvement, thus contributing to her somnolence. She remains afebrile. Hemoglobin decreased to 7.8 without signs of bleeding. She continues on PPN for nutritional supplementation. Blood cultures remain negative after 4 days. Still waiting on family and establishment of [facility] for discharge planning. Objective Vital signs: Temperature 97.6 F 02/05/18 07:25 Pulse Rate 76 02/05/18 07:25 Respiratory Rate 20 02/05/18 07:25 Blood Pressure 114/62 02/05/18 07:25 Pulse Oximetry 94 02/05/18 07:35 Rhythm: Normal Sinus Rhythm Height/Weight/BMI: Height 5 ft 2 in Weight 121 lb 11.123 oz Body Mass Index 21.7 Comments: Sleeping. - Constitutional Present: no acute distress, well developed, thin, cooperative Comments: Breathing easily on room air. - Routine HEENT Exam Head: Present: normocephalic, atraumatic Eye: Present: PERRL. Absent: conjunctival icterus ENT: Present: mucous membranes dry - Routine Respiratory Exam Present: CTA bilaterally. Absent: respiratory distress, wheezes - Routine Cardiovascular Exam Present: RRR, S1, S2 - Routine Abdominal Exam Present: soft, normoactive bowel sounds, non distended - Routine Extremities Exam Present: no edema, pulses intact - Routine Back/Spine/Pelvis Exam Comments: Unable to assess - Routine Skin Exam Present: intact, dry, warm Comments: Afebrile. - Routine Neurological Exam Somnolent - Routine Lymphatic Exam Lymphatic: Absent: lymphedema - Routine Psychiatric Exam Present: cooperative Comments: Somnolent. Results - Labs CBC & Chem 7: 02/05/18 04:51 02/05/18 04:51 Microbiology Results: Microbiology 02/01/18 08:11 Peripheral/Iv Start Blood Culture - Preliminary No Growth After 4 Days 02/01/18 08:05 Peripheral/Iv Start Blood Culture - Preliminary No Growth After 4 Days Assessment and Plan Assessment and Plan: Assessment Severe sepsis (POA)- Resolved Bilateral Pneumonia (POA)- Resolved Right pleural effusion (POA) Acute Hypoxia- requiring 1 liter Leukocytosis- Persistent Acute Encephalopathy- stable Hypernatremia- POA- Resolved Hypokalemia- POA- Resolved Acute Kidney injury in setting of CKD- Resolved Severe Parkinson's disease HTN history Anemia OA Plan Family continues to work on establishing a DPOA/guardianship. Once guardianship is determined, will be able to coordinate ongoing plan - home on hospice, facility, etc. In the mean time will continue with treatment - Zosyn and vancomycin for antimicrobial coverage. Repeat blood cultures remain negative x 4 days. Off and on low grade fevers noted. Leukocytosis resolved (WBC 9.7). Continue respiratory cares, breathing treatments, and suction as needed. Patient weaned to room air and breathing easily. Oxygen as needed. PPN for hydration and nutritional support. - pharmacy managing. Blood sugars remain stable. Hemoglobin continues to trend down (7.8) without signs of bleeding. Will continue to monitor. Repeat labs in AM to monitor blood counts, electrolytes and renal function. DVT Prophylaxis: SCD's GI Prophylaxis: Protonix Resuscitation Status: Do Not Resuscitate - Time spent with patient Time with patient PN: 25 minutes - Physician Narrative Physician: Edgar Hilario MD Narrative: Date: 02/05/18 Time: 1021 Have independently interviewed & examined. Patient. Chart reviewed. Case discussed with CM & my PA. Care plan developed with my supervision; agree with above. Resting in bed. No verbal. Not moving extremities. Lungs: decreased CV: regular AB: soft nt BS decreased EXT: thin Plan: Continue with supportive care. Court document filled out. Prognosis terminal. Do not see patient making any viable recovery. Hospital Course Summary Disclaimer: The visit summary below is not to be considered part of the above Progress Note. Hospital Course: 01/23/18 Admit to Hospitalist service Received 30 cc/kg bolus of NS - now fluids changed to LR running at 100 cc/hour Labs in the AM Oxygen therapy to keep sats > 90% RT consult Social Work consult Patient remains DNR Blood Cultures pending SCDs Rocephin 1gram IV q 24 hours Azithromycin 500mg IV q 24 hours Protonix 40mg IV q 24 hours Tylenol suppository prn as directed MSO4 prn as directed NPO - o/p swabs if needed 01/24 Sodium increasing - will start 1/2NS at 100cc/hr for hydration and to improve serum sodium. Continue Rocephin 1gram IV q 24 hours and azithromycin 500mg IV q 24 hours for pulmonary coverage. Supportive O2 as needed. MS for pain. 01/25 Persistent Hypernatremia despite IV fluids - Change fluid to D5W at 100ml/hr Continue with Rocephin and Azithromycin for antimicrobial coverage Continues therapeutic NPO Overall status is concerning. 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 Possibly need to return to hospice/comfort care 01/26 Sodium has begun to slightly trend down- 164 Continue with IV fluids for hydration- D5W Speech consult to evaluate swallow Continue with Rocephin and Azithromycin for pulmonary antimicrobial coverage Continue to follow labs- Leukocytosis is trending down- WBC 14.7 Wean O2 as able 01/27 Not seeing clinical improvement. Met with Hospice nurses, CM/SW from [facility] and family about care goals. Family in process of processing options. Sodium with decrease to 156 and potassium decreased to 3.0. Renal status improved. Will change IVF to D5W with 20 KCl at 100cc/hr. WBC with slight decrease to 14.0. Continue Rocephin but could stop azithromycin after today's last dose. 01/28 No significant clinical improvement. Sodium with decrease to 149 from 156 yesterday. WBC with slight elevation to 14.6. CXR showing increase of right effusion. Continue IVF to help improve sodium. Continue Rocephin; may stop azithromycin as course completed. Palliative meeting arranged with family this evening to discuss course of care. 01/29 Persistent leukocytosis and hypernatremia At this point, we'll continue with IV fluids for hydration given her diminished oral intake. Palliative care discussion yesterday with Dr. Gutierrez and presence of and family friend. This was discussed further with case management today. Hopeful to determine discharge location, home versus facility today. Hopeful for discharge back to hospice tomorrow. 01/30 Continues NPO. Persistent leukocytosis and hypernatremia. Continued IV fluids for hydration. Multiple conversations with CM regarding plan. No legal DPOA. 01/31 This is a tough situation as she expressed desire to be hospice in 2015 when she was still able to speak for herself. With this admission, hospice was automatically revoked. Now, she does not have a DPOA that can make decisions for her and she is not communicating enough to state her wishes. I did speak with CM today and apparently the was in with a friend who works at a local law office and is going to help the initiate guardianship paperwork. In the mean time, she is only a DNR so ideally we should start feeding her. I will try to initiate PPN. If that gets going we will stop the IVF all together. 02/01 WBC with increase from 16.1 to 23.2, will change antibiotics to vancomycin and Zosyn. 02/02 has a meeting with copper miner [employer] today to obtain guardianship today. At that point will be able to coordinate ongoing plan.- home on hospice, facility, etc. In the mean time will continue with treatment -- Zosyn and vancomycin for antimicrobial coverage. Continued breathing tx, oxygen and suction as needed. PPN for hydration and nutritional support. Persistent leukocytosis but showing decrease from yesterday. Will continue to follow daily labs. Plan - 02/03/18 was scheduled to meet with copper [employer]er bl[employer] on 02/02/18 to obtain guardianship. Once guardianship is determined, will be able to coordinate ongoing plan - home on hospice, facility, etc. In the mean time will continue with treatment - Zosyn and vancomycin for antimicrobial coverage. Repeat blood cultures remain negative x 2 days. Patient afebrile. WBC trending down. Continue respiratory cares, breathing treatments, oxygen and suction as needed. Stable on 1L NC. PPN for hydration and nutritional support. - pharmacy managing. Blood sugars remain stable. Slight decrease in hemoglobin (Hgb 8.7). Continue to monitor. Repeat labs in AM to monitor blood counts, electrolytes and renal function. Plan - 02/04/18 Family continues to work on establishing a DPOA/guardianship. Once guardianship is determined, will be able to coordinate ongoing plan - home on hospice, facility, etc. In the mean time will continue with treatment - Zosyn and vancomycin for antimicrobial coverage. Repeat blood cultures remain negative x 3 days. Off and on low grade fevers noted. Slight increase in WBC at 12.7 (up from 11.9). Will continue to monitor. Continue respiratory cares, breathing treatments, and suction as needed. Patient weaned to room air and breathing easily. Oxygen as needed. PPN for hydration and nutritional support. - pharmacy managing. Blood sugars remain stable. Slight decrease in hemoglobin (Hgb 8.7). Continue to monitor. Repeat labs in AM to monitor blood counts, electrolytes and renal function. Plan - 02/05/18 Family continues to work on establishing a DPOA/guardianship. Once guardianship is determined, will be able to coordinate ongoing plan - home on hospice, facility, etc. In the mean time will continue with treatment - Zosyn and vancomycin for antimicrobial coverage. Repeat blood cultures remain negative x 4 days. Off and on low grade fevers noted. Leukocytosis resolved (WBC 9.7). Continue respiratory cares, breathing treatments, and suction as needed. Patient weaned to room air and breathing easily. Oxygen as needed. PPN for hydration and nutritional support. - pharmacy managing. Blood sugars remain stable. Hemoglobin continues to trend down (7.8) without signs of bleeding. Will continue to monitor. Repeat labs in AM to monitor blood counts, electrolytes and renal function.
[2018-02-05] MEDS: [UNRECOGNIZED DRUG - OTHER] IV SCH (14:25)
[2018-02-05] MEDS: POTASSIUM ACETATE IV SCH (14:25)
[2018-02-05] MEDS: MULTI TRACE ELEMENTS IV SCH (14:25)
[2018-02-05] MEDS: MULTI VIT INFUSION IV SCH (14:25)
[2018-02-05] MEDS: FAT EMULSION 20% 500 ML IV SCH (15:37)
[2018-02-06] MEDS: PIPERACILLIN/TAZOBACTAM 2.25 GM in NS 100 ML IV SCH ×4 (03:04→20:24)
--- NOTE | 2018-02-06 07:28 | Pharmacy Consult-TPN/PPN ---
Pharmacy Consult-TPN/PPN - Laboratory Information Chemistry Turbidity < 20 (0-20) 02/06/18 04:44 Sodium 141 MEQ/L (134-144) 02/06/18 04:44 Potassium 3.7 MEQ/L (3.6-5) 02/06/18 04:44 Chloride 104 MEQ/L (98-107) 02/06/18 04:44 Carbon Dioxide 26 MEQ/L (22-30) 02/06/18 04:44 Anion Gap 11 meq/L (5-15) 02/06/18 04:44 BUN 17.0 MG/DL (7-17) 02/06/18 04:44 Creatinine 0.6 mg/dL (0.7-1.2) L 02/06/18 04:44 GFR Calculation 96 02/06/18 04:44 BUN/Creatinine Ratio 28 RATIO (6-26) H 02/06/18 04:44 Glucose 112 MG/DL (65-110) H 02/06/18 04:44 Glucometer 112 mg/dL (65-110) 02/06/18 05:53 Calculated Osmolality 274 MOSM/KG (261-280) 02/06/18 04:44 Calcium 8.1 MG/DL (8.4-10.2) L 02/06/18 04:44 Phosphorus 4.6 MG/DL (2.5-4.5) H 02/02/18 07:02 Magnesium 1.9 MG/DL (1.6-2.3) 02/01/18 05:06 Total Bilirubin 0.30 MG/DL (0.20-1.30) 01/24/18 04:33 Conjugated Bilirubin 0.00 mg/dL (0.00-0.30) 01/24/18 04:33 Unconjugated Bilirubin 0.00 mg/dL (0.00-1.1) 01/24/18 04:33 Icterus Index < 2 (0-7) 02/06/18 04:44 AST 31 U/L (14-36) D 01/24/18 04:33 ALT 8 U/L (1-35) 01/24/18 04:33 Alkaline Phosphatase 106 U/L (38-126) D 01/24/18 04:33 NT-Pro-B Natriuret Pep 3580 pg/mL (0-175) H 01/22/18 16:32 Total Protein 6.2 g/dL (6.3-8.2) L 01/24/18 04:33 Albumin 3.0 g/dL (3.5-5.0) L 01/24/18 04:33 Globulin 3.2 G/DL (2.4-3.6) 01/24/18 04:33 Albumin/Globulin Ratio 0.9 RATIO (1.1-2.2) L 01/24/18 04:33 Plasma Lactate 0.9 MMOL/L (0.6-2.2) 02/01/18 12:03 Procalcitonin 3.60 NG/ML H* 02/04/18 08:29 Specimen Hemolysis < 15 (0-25) 02/06/18 04:44 Intake and Output 02/05/18 02/06/18 02/07/18 06:59 06:59 06:59 Intake Total 2670.00 / 2670.00 3227.5 / 3227.5 Output Total 2024 / 2024 Balance 2670.00 / 2670.00 1202.5 / 1202.5 Weight 55 kg 55.2 kg Intake: IV 2670.00 / 2670.00 3227.5 / 3227.5 Fat Emulsion 20% 500 ml @ 50 500 / 500 500 / 500 mls/hr IV 1600 BASILIO Rx#: [id number] Multi-Vit Infusion 10 ml Multi 1327.5 / 1327.5 -Trace Elements 1 ml In Ppn - Standard Formula 2,000 ml @ 75 mls/hr IV .Q24H BASILIO Rx#: [id number] Multi-Vit Infusion 10 ml Multi 1520.00 / 1520.00 -Trace Elements 1 ml Water For Injection 250 ml In Ppn - Standard Formula 2,000 ml @ 75 mls/hr IV .Q24H BASILIO Rx#: [id number] Piperacillin/Tazobactam 2.25 gm 400 / 400 400 / 400 In Ns 100 ml @ 200 mls/hr IV Q6H BASILIO Rx#:[id number] Vancomycin 1,250 mg In NS 250ml 250 / 250 250 ml @ 200 mls/hr IV Q18H BASILIO Rx#:[id number] Vancomycin 1,500 mg In NS 500ml 1000 / 1000 500 ml @ 250 mls/hr IV Q18H BASILIO Rx#:[id number] Oral 0 / 0 Output: Urine Amount (Catheter) 2024 Other: Urine Appearance Clear Urine Color Yellow Bright Yellow Urine Odor Strong Stool Color Green Brown Stool Consistency Liquid Loose Size of Bowel Movement Moderate # Incontinent Voids 1 1 # Incontinent Bowel Movements 1 - Consult Information We will continue same PPN formula and rate as yesterday. Electrolytes appear to be acceptable. Thanks
[2018-02-06] MEDS: SALINE FLUSH 10ml SYRINGE IVF PRN ×2 (09:32→16:18)
[2018-02-06] MEDS: HEPARIN SUB-Q 5,000units/0.5ml INJECTION SQ SCH ×2 (09:32→20:26)
[2018-02-06] MEDS: PANTOPRAZOLE 40 MG INJECTION IVP SCH (09:32)
--- NOTE | 2018-02-06 09:37 | Progress Note ---
- Date 02/06/18 Subjective: F/U: severe sepsis secondary to bilateral pneumonia with acute hypoxia. Shantal is seen this morning. She is sleeping and briefly arouses with voice and touch stimuli but remains nonverbal. No clinical changed. Labs unremarkable with slight decrease in hemoglobin (Hgb 7.6), most likely dilutional. Continue to wait on designation of guardianship. Court documents have reportedly been filed. Objective Vital signs: Temperature 98.2 F 02/06/18 07:33 Pulse Rate 90 02/06/18 07:33 Respiratory Rate 22 02/06/18 07:33 Blood Pressure 148/83 H 02/06/18 07:33 Pulse Oximetry 92 02/06/18 07:33 Rhythm: Normal Sinus Rhythm Height/Weight/BMI: Height 5 ft 2 in Weight 121 lb 11.123 oz Body Mass Index 21.7 Comments: Sleeping. Nonverbal. - Constitutional Present: no acute distress, well developed, thin - Routine HEENT Exam Head: Present: normocephalic, atraumatic ENT: Present: mucous membranes dry - Routine Respiratory Exam Present: CTA bilaterally. Absent: respiratory distress, wheezes - Routine Cardiovascular Exam Present: RRR, S1, S2 - Routine Abdominal Exam Present: soft, normoactive bowel sounds, non distended - Routine Extremities Exam Present: no edema, pulses intact - Routine Musculoskeletal Exam Musculoskeletal: Present: no clubbing or cyanosis - Routine Skin Exam Present: intact, dry, warm - Routine Neurological Exam Present: hearing grossly intact Somnolent. - Routine Psychiatric Exam Present: cooperative Results - Labs CBC & Chem 7: 02/06/18 04:44 02/06/18 04:44 Microbiology Results: Microbiology 02/01/18 08:11 Peripheral/Iv Start Blood Culture - Final No Growth After 5 Days 02/01/18 08:05 Peripheral/Iv Start Blood Culture - Final No Growth After 5 Days Assessment and Plan Assessment and Plan: Assessment Severe sepsis (POA)- Resolved Bilateral Pneumonia (POA)- Resolved Right pleural effusion (POA) Acute Hypoxia - requiring 1 liter Leukocytosis - Persistent Acute Encephalopathy - stable Hypernatremia - POA- Resolved Hypokalemia - POA- Resolved Acute Kidney injury in setting of CKD - Resolved 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 HTN history Anemia OA Plan Family continues to work on establishing a DPOA/guardianship. Court documents have reportedly been filed. Once guardianship is determined, will be able to coordinate ongoing plan - home on hospice, facility, etc. In the mean time will continue with treatment - Zosyn and vancomycin for antimicrobial coverage. Repeat blood cultures remain negative x 5 days. Off and on low grade fevers noted. Continue respiratory cares, breathing treatments, and suction as needed. Patient weaned to room air and breathing easily. Oxygen as needed. PPN for hydration and nutritional support. - pharmacy managing. Blood sugars remain stable. Hemoglobin continues to trend down (7.6) without signs of bleeding. Will continue to monitor. Most likely dilutional. Repeat labs in AM to monitor blood counts, electrolytes and renal function. Yanelis WBC normal today and yesterday. Will continue Zosyn, but can stop vancomycin. Awaiting court appointed guardianship. Looking into transitioning to [facility] in [place] for discharge care. Hospice changing from [place] to [facility]. Condition terminal. Dx: End Stage Parkinson's DVT Prophylaxis: SCD's Resuscitation Status: Do Not Resuscitate - Time spent with patient Time with patient PN: 25 minutes - Physician Narrative Physician: Edgar Hilario MD Narrative: Date: 02/06/18 Time: 1445 Have independently interviewed and examined pt. Chart reviewed. Case discussed with CM and my PA. Care plan developed with my supervision; agree with above. Resting peacefully in bed. Looks more comfortable today. Not responding to verbal stimuli. Non verbal. Not moving ext at this time. Lungs: decreased, no distress on RA CV: regular AB: soft nt MSE: obtunded Plan: Continue with supportive care. Awaiting court appointed guardianship. Looking into transitioning to [facility] in [place] for discharge care. Hospice changing from [place] to [facility]. Condition terminal. Dx: End Stage Parkinson's Hospital Course Summary Disclaimer: The visit summary below is not to be considered part of the above Progress Note. Hospital Course: 01/23/18 Admit to Hospitalist service Received 30 cc/kg bolus of NS - now fluids changed to LR running at 100 cc/hour Labs in the AM Oxygen therapy to keep sats > 90% RT consult Social Work consult Patient remains DNR Blood Cultures pending SCDs Rocephin 1gram IV q 24 hours Azithromycin 500mg IV q 24 hours Protonix 40mg IV q 24 hours Tylenol suppository prn as directed MSO4 prn as directed NPO - o/p swabs if needed 01/24/18 Sodium increasing - will start 1/2NS at 100cc/hr for hydration and to improve serum sodium. Continue Rocephin 1gram IV q 24 hours and azithromycin 500mg IV q 24 hours for pulmonary coverage. Supportive O2 as needed. MS for pain. 01/25 Persistent Hypernatremia despite IV fluids - Change fluid to D5W at 100ml/hr Continue with Rocephin and Azithromycin for antimicrobial coverage Continues therapeutic NPO Overall status is concerning. Likely need to discuss detention plan with family. Possibly need to return to hospice/comfort care 01/26 Sodium has begun to slightly trend down- 164 Continue with IV fluids for hydration- D5W Speech consult to evaluate swallow Continue with Rocephin and Azithromycin for pulmonary antimicrobial coverage Continue to follow labs- Leukocytosis is trending down- WBC 14.7 Wean O2 as able 01/27/18 Not seeing clinical improvement. Met with Hospice nurses, CM/MARCO ANTONIO [place] [facility] and family about care goals. Family in process of processing options. Sodium with decrease to 156 and potassium decreased to 3.0. Renal status improved. Will change IVF to D5W with 20 KCl at 100cc/hr. WBC with slight decrease to 14.0. Continue Rocephin but could stop azithromycin after today's last dose. 01/28 No significant clinical improvement. Sodium with decrease to 149 from 156 yesterday. WBC with slight elevation to 14.6. CXR showing increase of right effusion. Continue IVF to help improve sodium. Continue Rocephin; may stop azithromycin as course completed. Palliative meeting arranged with family this evening to discuss course of care. 01/29/18 Persistent leukocytosis and hypernatremia At this point, we'll continue with IV fluids for hydration given her diminished oral intake. Palliative care discussion yesterday with Dr. Gutierrez and presence of and family friend. This was discussed further with case management today. Hopeful to determine discharge location, home versus facility today. Hopeful for discharge back to hospice tomorrow. 01/30/18 Continues NPO. Persistent leukocytosis and hypernatremia. Continued IV fluids for hydration. Multiple conversations with CM regarding plan. No legal DPOA. 01/31/18 This is a tough situation as she expressed desire to be hospice in 2016 when she was still able to speak for herself. With this admission, hospice was automatically revoked. Now, she does not have a DPOA that can make decisions for her and she is not communicating enough to state her wishes. I did speak with CM today and apparently the was in with a friend who works at a local law office and is going to help the initiate guardianship paperwork. In the mean time, she is only a DNR so ideally we should start feeding her. I will try to initiate PPN. If that gets going we will stop the IVF all together. 02/01/18 WBC with increase from 16.1 to 23.2, will change antibiotics to vancomycin and Zosyn. 02/02/18 has a meeting with admin dir today to obtain guardianship today. At that point will be able to coordinate ongoing plan.- home on hospice, facility, etc. In the mean time will continue with treatment -- Zosyn and vancomycin for antimicrobial coverage. Continued breathing tx, oxygen and suction as needed. PPN for hydration and nutritional support. Persistent leukocytosis but showing decrease from yesterday. 02/03/18 was scheduled to meet with admin dir on 02/02/18 to obtain guardianship. Once guardianship is determined, will be able to coordinate ongoing plan - home on hospice, facility, etc. In the mean time will continue with treatment - Zosyn and vancomycin for antimicrobial coverage. Repeat blood cultures remain negative x 2 days. Patient afebrile. WBC trending down. Continue respiratory cares, breathing treatments, oxygen and suction as needed. Stable on 1L NC. PPN for hydration and nutritional support. - pharmacy managing. 02/04/18 Family continues to work on establishing a DPOA/guardianship. Once guardianship is determined, will be able to coordinate ongoing plan - home on hospice, facility, etc. In the mean time will continue with treatment - Zosyn and vancomycin for antimicrobial coverage. Repeat blood cultures remain negative x 3 days. Off and on low grade fevers noted. Slight increase in WBC at 12.7 (up from 11.9). Will continue to monitor. Continue respiratory cares, breathing treatments, and suction as needed. Patient weaned to room air and breathing easily. Oxygen as needed. PPN for hydration and nutritional support. - pharmacy managing. 02/05/18 Family continues to work on establishing a DPOA/guardianship. Once guardianship is determined, will be able to coordinate ongoing plan - home on hospice, facility, etc. In the mean time will continue with treatment - Zosyn and vancomycin for antimicrobial coverage. Repeat blood cultures remain negative x 4 days. Off and on low grade fevers noted. Leukocytosis resolved (WBC 9.7). Continue respiratory cares, breathing treatments, and suction as needed. Patient weaned to room air and breathing easily. Oxygen as needed. PPN for hydration and nutritional support. - pharmacy managing. 02/06/18 Family continues to work on establishing a DPOA/guardianship. Court documents have reportedly been filed. Once guardianship is determined, will be able to coordinate ongoing plan - home on hospice, facility, etc. In the mean time will continue with treatment - Zosyn for antimicrobial coverage ; can stop vancomycin. Repeat blood cultures remain negative x 5 days. Off and on low grade fevers noted. Continue respiratory cares, breathing treatments, and suction as needed. Patient weaned to room air and breathing easily. Oxygen as needed. PPN for hydration and nutritional support. - pharmacy managing. Awaiting court appointed guardianship. Looking into transitioning to [facility] in [place] for discharge care. Hospice changing from [place] to [facility]. Condition terminal. Dx: End Stage Parkinson's
[2018-02-06] MEDS: MULTI VIT INFUSION IV SCH (16:18)
[2018-02-06] MEDS: MULTI TRACE ELEMENTS IV SCH (16:18)
[2018-02-06] MEDS: FAT EMULSION 20% 500 ML IV SCH (16:18)
[2018-02-06] MEDS: POTASSIUM ACETATE IV SCH (16:18)
[2018-02-06] MEDS: [UNRECOGNIZED DRUG - OTHER] IV SCH (16:18)
--- NOTE | 2018-02-06 17:21 | Wound Care Progress Note ---
Wound Center Progress Note: Saw pt and advised at this time to continue Nystanin powder and Coffee filters for wicking. When pt is dismissed she will need to follow in the wound clinic.
[2018-02-07] MEDS: PIPERACILLIN/TAZOBACTAM 2.25 GM in NS 100 ML IV SCH ×2 (02:56→10:11)
[2018-02-07 07:49] VITALS: BP 155/83; PULSE 88; RESP 18; TEMP 98.7
[2018-02-07] MEDS: HEPARIN SUB-Q 5,000units/0.5ml INJECTION SQ SCH (10:09)
[2018-02-07] MEDS: PANTOPRAZOLE 40 MG INJECTION IVP SCH (10:09)
--- NOTE | 2018-02-07 10:41 | Pharmacy Consult-TPN/PPN ---
Pharmacy Consult-TPN/PPN - Laboratory Information Chemistry Turbidity < 20 (0-20) 02/07/18 07:42 Sodium 141 MEQ/L (134-144) 02/07/18 07:42 Potassium 4.0 MEQ/L (3.6-5) 02/07/18 07:42 Chloride 105 MEQ/L (98-107) 02/07/18 07:42 Carbon Dioxide 26 MEQ/L (22-30) 02/07/18 07:42 Anion Gap 10 meq/L (5-15) 02/07/18 07:42 BUN 17.0 MG/DL (7-17) 02/07/18 07:42 Creatinine 0.7 mg/dL (0.7-1.2) 02/07/18 07:42 GFR Calculation 80 02/07/18 07:42 BUN/Creatinine Ratio 24 RATIO (6-26) 02/07/18 07:42 Glucose 120 MG/DL (65-110) H 02/07/18 07:42 Glucometer 128 mg/dL (65-110) 02/07/18 07:00 Calculated Osmolality 274 MOSM/KG (261-280) 02/07/18 07:42 Calcium 8.1 MG/DL (8.4-10.2) L 02/07/18 07:42 Phosphorus 4.6 MG/DL (2.5-4.5) H 02/02/18 07:02 Magnesium 1.9 MG/DL (1.6-2.3) 02/01/18 05:06 Total Bilirubin 0.30 MG/DL (0.20-1.30) 01/24/18 04:33 Conjugated Bilirubin 0.00 mg/dL (0.00-0.30) 01/24/18 04:33 Unconjugated Bilirubin 0.00 mg/dL (0.00-1.1) 01/24/18 04:33 Icterus Index < 2 (0-7) 02/07/18 07:42 AST 31 U/L (14-36) D 01/24/18 04:33 ALT 8 U/L (1-35) 01/24/18 04:33 Alkaline Phosphatase 106 U/L (38-126) D 01/24/18 04:33 NT-Pro-B Natriuret Pep 3580 pg/mL (0-175) H 01/22/18 16:32 Total Protein 6.2 g/dL (6.3-8.2) L 01/24/18 04:33 Albumin 3.0 g/dL (3.5-5.0) L 01/24/18 04:33 Globulin 3.2 G/DL (2.4-3.6) 01/24/18 04:33 Albumin/Globulin Ratio 0.9 RATIO (1.1-2.2) L 01/24/18 04:33 Plasma Lactate 0.9 MMOL/L (0.6-2.2) 02/01/18 12:03 Procalcitonin 3.60 NG/ML H* 02/04/18 08:29 Specimen Hemolysis < 15 (0-25) 02/07/18 07:42 Intake and Output 02/06/18 02/07/18 02/08/18 06:59 06:59 06:59 Intake Total 3227.5 / 3227.5 2770.00 / 2770.00 Output Total 2024 2700 / 2700 Balance 1202.5 / 1202.5 70.00 / 70.00 Weight 55.2 kg 56.1 kg 54.5 kg Intake: IV 3227.5 / 3227.5 2770.00 / 2770.00 Fat Emulsion 20% 500 ml @ 50 500 / 500 500 / 500 mls/hr IV 1600 BASILIO Rx#: [id number] Multi-Vit Infusion 10 ml Multi 1327.5 / 1327.5 -Trace Elements 1 ml In Ppn - Standard Formula 2,000 ml @ 75 mls/hr IV .Q24H BASILIO Rx#: [id number] Piperacillin/Tazobactam 2.25 gm 400 / 400 400 / 400 In Ns 100 ml @ 200 mls/hr IV Q6H [facility]IO Rx#:[id number] Potassium Acetate Inj 20 meq 1870.00 / 1870.00 Multi-Vit Infusion 10 ml Multi -Trace Elements 1 ml In Ppn - Standard Formula 2,000 ml @ 75 mls/hr IV .Q24H [facility]ILIO Rx#: [id number] Vancomycin 1,500 mg In NS 500ml 1000 / 1000 500 ml @ 250 mls/hr IV Q18H [facility]ILIO Rx#:[id number] Output: Urine Amount (Catheter) 2024 2700 / 2700 Other: Urine Appearance Clear Clear Urine Color Bright Yellow Yellow Urine Odor Strong Normal Stool Color Brown Brown Stool Consistency Loose Soft Size of Bowel Movement Moderate Moderate # Incontinent Voids 1 # Incontinent Bowel Movements 1 - Consult Information TPN/PPN consult day 8: Electrolytes reviewed. Continue current PPN formula and rate. Thank you, Leyda Carrera, [facility] current PPN formula/bag amino acid 10% 1000 ml Dextrose 10% 1000 ml sodium 70 MEQ Potassium 80 MEQ Magnesium 10 MEQ Calcium 9 MEQ Acetate 160 MEQ Chloride 78 MEQ Phos 30 mmol MVI 10 ml Trace 1 ml sterile water 250 ml
[2018-02-07] MEDS ORDERED: MORPHINE SULFATE 10mg/0.5ml ORAL LIQ PO PRN (11:30)
[2018-02-07] MEDS ORDERED: LORazepam 0.5 MG TABLET PO PRN (11:32)
[2018-02-07 11:46] VITALS: O2SAT 92
--- NOTE | 2018-02-07 11:54 | Extended Care Facility Orders ---
Admission Orders Admit to:: Hospice Allergies/Adverse Reactions: Allergies No Known Allergies Allergy (Verified 01/22/18 16:56) Admitting Diagnosis: pneumonia,sepsis Admitting Physician: Zaria Huff MD Attending Physician: Zaria Huff MD Code Status: Do Not Resuscitate Anticiapted Length of Stay: 30 days or less Rehab Potential: poor Rehab Prognosis: poor Diet: Pured, honey thickened liquids; offer foods only if patient indicates desire and feed only if upright to minimize aspiration risk Wound/Incision Care: Not applicable May use Facility Protocol or Standing Orders: Yes May have flu vaccine: Yes Group Home Certification: I certify that SNF services are required to be given on an Inpatient basis because of the patients need for penitentiary care on a continuing basis for the condition(s) for which he/she received inpatient hospital services prior to his/her transfer to the SNF. SNF inpatient care is necessary for the following reasons Indication for Group Home: Not Applicable, Other (maintain patient comfort) - Additional Information In Event of Arrest: Do Not Start CPR Additional Orders: [facility] will assist in patient management
--- NOTE | 2018-02-07 12:05 | Discharge Summary ---
Discharge Information Date of admission: 01/22/18 19:43 Anticipated date of discharge: 02/07/18 Attending Physician: Zaria Huff MD Primary care physician: Sandra Delarosa MD Consults: - Discharge Diagnosis (1) Septic shock Status: Acute (2) Pneumonia Status: Acute Septic shock Bilateral Pneumonia -likely due to aspiration Acute hypoxic respiratory failure Encephalopathy Acute Kidney injury/dehydration Hypernatremia Right pleural effusion Leukocytosis Hypokalemia Severe Parkinson's disease - End Stage Disease Dysphagia secondary to Parkinson's - Procedures Procedures: PICC placed 02/05/18; discontinued at discharge - Laboratory Labs: 02/07/18 04:18 02/07/18 07:42 - Microbiology Microbiology Blood cultures 4 drawn on 01/22 and 02/01 were all negative after 5 days - Radiology Radiology: Initial chest x-ray on 01/22 demonstrated right lower lobe infiltrate and pleural effusion increased from film 2 years ago and infiltrate at the right base. Follow-up films demonstrated worsening right pleural effusion increasing to moderate/large with compressive atelectasis in the right lung; a small left pleural effusion evolved as well. Pulmonary edema was identified on the final film on 01/31. History of Present Illness HPI: Mrs. Robledo is an 82 y/o w/ severe Parkinson's, HTN, arthritis and other medical issues who is currently cared for at home by her family as well as home hospice who is brought in by EMS today d/t decreasing responsiveness and shortness of breath. The patient was seen by hospice nurse today, and she was unresponsive and apparently not out of bed since Friday and not taking po, and patient's son and desired that EMS be contacted and that patient be transported to the ED at [facility] for evaluation. Patient in ER had temp of 101.6 F, tachycardic w/ HR in the 140s, lactate of 2.8 , Na = 161, BUN/Cr = 61/2.1, WBC =16.2 and Influenza pending; NS x 2 L given, and CXR showed likely bilateral lower lobe pneumonia so Rocephin and Azithromycin IV given in ER. Per ER physician's report, patient has a DNR and will remain a DNR per patient's family's request however patient's family would like for the pneumonia to be treated and patient to be admitted to the hospital. Patient on oxygen therapy as she was noted to be hypoxic. Currently 6 L/min HF NC place over the mouth as she is a mouth breather. Patient's fluids were changed from NS to LR which is running currently at 100 cc /hour. Patient to be admitted to the Hospitalist service for further evaluation and management. Objective Vital signs: Temperature 98.7 F 02/07/18 07:00 Pulse Rate 88 02/07/18 07:00 Respiratory Rate 18 02/07/18 07:00 Blood Pressure 155/83 H 02/07/18 07:00 Pulse Oximetry 92 - RA 02/07/18 11:45 NAD, respirations nonlabored, patient resting quietly/comfortably Mumbles good morning when I examined her but no other speech offered Tremor present bilateral upper extremities Anterior breath sounds clear Regular rhythm, S1-S2 Abdomen soft, diminished bowel sounds Rhythm: Normal Sinus Rhythm Height/Weight/BMI: Height 1.57 m Weight 54.5 kg Body Mass Index 21.7 Hospital Course This is a general summary of the patient's hospital course. For more details refer to the complete medical record. Hospital course: 01/23/18 Admit to Hospitalist service - lactic acid 4.8 and chest x-ray with bilateral infiltrates consistent with septic shock. Received 30 cc/kg bolus of NS - now fluids changed to LR running at 100 cc/hour Initially required 10-11 L oxygen to maintain saturations. Placed on azithromycin/Rocephin for community-acquired pneumonia. Patient remains DNR Tylenol suppository prn as directed; MSO4 prn as directed Acute kidney injury and hypernatremia present-appears dehydrated. Fluids continued as above after bolus. NPO 01/24/18 Sodium increasing - will start 1/2NS at 100cc/hr for hydration and to improve serum sodium. Continue Rocephin 1gram IV q 24 hours and azithromycin 500mg IV q 24 hours for pulmonary coverage. Supportive O2 as needed. MS for pain. 01/25 Persistent Hypernatremia despite IV fluids - Change fluid to D5W at 100ml/hr Continue with Rocephin and Azithromycin for antimicrobial coverage Continues therapeutic NPO Overall status is concerning. 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 Possibly need to return to hospice/comfort care 01/26 Sodium has begun to slightly trend down- 164 Continue with IV fluids for hydration- D5W Speech consult to evaluate swallow Continue with Rocephin and Azithromycin for pulmonary antimicrobial coverage Continue to follow labs- Leukocytosis is trending down- WBC 14.7 Wean O2 as able 01/27/18 Not seeing clinical improvement. Met with Hospice nurses, CM/MARCO ANTONIO from [facility] and family about care goals. Family in process of processing options. Sodium with decrease to 156 and potassium decreased to 3.0. Renal status improved. Will change IVF to D5W with 20 KCl at 100cc/hr. WBC with slight decrease to 14.0. Continue Rocephin but could stop azithromycin after today's last dose. 01/28 No significant clinical improvement. Sodium with decrease to 149 from 156 yesterday. WBC with slight elevation to 14.6. CXR showing increase of right effusion. Continue IVF to help improve sodium. Continue Rocephin; may stop azithromycin as course completed. Palliative meeting arranged with family this evening to discuss course of care. 01/29/18 Persistent leukocytosis and hypernatremia At this point, we'll continue with IV fluids for hydration given her diminished oral intake. Palliative care discussion yesterday with Dr. Gutierrez and presence of and family friend. This was discussed further with case management today. Hopeful to determine discharge location, home versus facility today. Hopeful for discharge back to hospice tomorrow. 01/30/18 Continues NPO. Persistent leukocytosis and hypernatremia. Continued IV fluids for hydration. Multiple conversations with CM regarding plan. No legal DPOA. 01/31/18 This is a tough situation as she expressed desire to be hospice in 2016 when she was still able to speak for herself. With this admission, hospice was automatically revoked and she does not have a DPOA that can make decisions for her. plans to petition Court for guardianship. In the mean time, she is only a DNR so ideally we should start feeding her. I will try to initiate PPN; after initiation will discontinue the IVF. 02/01/18 WBC with increase from 16.1 to 23.2, will change antibiotics to vancomycin and Zosyn. 02/02/18 has a meeting with claims attorney today to obtain guardianship today. At that point will be able to coordinate ongoing plan.- home on hospice, facility, etc. In the mean time will continue with treatment -- Zosyn and vancomycin for antimicrobial coverage. Continued breathing tx, oxygen and suction as needed. PPN for hydration and nutritional support. Persistent leukocytosis but showing decrease from yesterday. 02/03/18 was scheduled to meet with claims attorney on 02/02/18 to obtain guardianship. Once guardianship is determined, will be able to coordinate ongoing plan - home on hospice, facility, etc. In the mean time will continue with treatment - Zosyn and vancomycin for antimicrobial coverage. Repeat blood cultures remain negative x 2 days. Patient afebrile. WBC trending down. Continue respiratory cares, breathing treatments, oxygen and suction as needed. Stable on 1L NC. PPN for hydration and nutritional support. - pharmacy managing. 02/04/18 Family continues to work on establishing a DPOA/guardianship. Once guardianship is determined, will be able to coordinate ongoing plan - home on hospice, facility, etc. In the mean time will continue with treatment - Zosyn and vancomycin for antimicrobial coverage. Repeat blood cultures remain negative x 3 days. Off and on low grade fevers noted. Slight increase in WBC at 12.7 (up from 11.9). Will continue to monitor. Continue respiratory cares, breathing treatments, and suction as needed. Patient weaned to room air and breathing easily. Oxygen as needed. PPN for hydration and nutritional support. - pharmacy managing. 02/05/18 Family continues to work on establishing a DPOA/guardianship. Once guardianship is determined, will be able to coordinate ongoing plan - home on hospice, facility, etc. In the mean time will continue with treatment - Zosyn and vancomycin for antimicrobial coverage. Repeat blood cultures remain negative x 4 days. Off and on low grade fevers noted. Leukocytosis resolved (WBC 9.7). Continue respiratory cares, breathing treatments, and suction as needed. Patient weaned to room air and breathing easily. Oxygen as needed. PPN for hydration and nutritional support. - pharmacy managing. 02/06/18 Treatment plan unchanged. Patient weaned to room air and breathing easily. Oxygen as needed. PPN for hydration and nutritional support. - pharmacy managing. Looking into transitioning to [facility] in [place] for discharge care. Hospice changing from [place] to [facility]. Late in the day hospital notified that Court has approved as guardian; family indicated intent to transfer patient to [facility] tomorrow. Condition terminal. Dx: End Stage Parkinson's 02/07/18 Patient status unchanged; nursing reports loose stools overnight but no other problems. concerned with lack of oral intake and somnolence but does not wish to awaken her. Speech therapy evaluated the patient on 2 occasions during the hospitalization and did not feel she could safely maintain oral intake. This strongly suggests that original pneumonia was due to aspiration. Patients and daughter at bedside; both confirm intent to transfer to [facility] today with initiation of hospice care on arrival there. [facility] will provide hospice services-medication list received from on-call nurse. Patient is medically stable for transfer; discontinue IV nutrition. Patient's assured that if she wishes something to eat pured diet will be available. Comfort medications ordered. Time spent with patient: discharge greater than 30 minutes Resuscitation Status: Do Not Resuscitate Discharge Plan - Discharge Disposition Discharge Date: 02/07/18 Disposition: 04 To [facility] Home/Facility *Condition: Stable Reason For Visit (Visit label in EMR): pneumonia,sepsis - Discharge Medications *Discharge Medications: New Acetaminophen Supp [Tylenol] 650 mg NV Q4H PRN #20 suppositor PRN Reason: Pain Hyoscyamine SL tab [Levsin] 0.125 mg PO QID PRN #20 tab.subl PRN Reason: Secretions LORazepam [Ativan] 0.5 mg PO/SL Q4H PRN #20 tab PRN Reason: Anxiety/Air Hunger/Agitation Morphine Sulfate Oral Liq [Roxanol Oral Liq] 5 - 10 mg PO Q2H PRN #30 ml PRN Reason: Agitation/Air Hunger/Pain Nystatin Cream [Mycostatin] 1 applicatio TP BID #30 g Discontinued Hyoscyamine Drops [Levsin] 0.125 mg PO QID PRN PRN Reason: Prn Orders No Action Docusate Sodium [Stool Softener] 100 mg PO HS #0 Carbidopa/Levodopa CR 50/200Mg [Sinemet Cr] 1 tab PO QID Sennosides [Senna] 2 tab PO BID Lisinopril [Prinivil] 10 mg PO DAILY Amlodipine [Norvasc] 5 mg PO BID Hydrocodone/APAP 5/325 [Tyronza 5/325] 1 - 2 tab PO Q6H PRN #20 PRN Reason: Pain Duloxetine HCl 30 mg PO BID Meloxicam 7.5 mg PO HS - Discharge Packet/Instructions *Diet: Pured, honey thickened liquids when alert enough to attempt oral intake *Activity: Bed rest *Pain Management/Treatment: Roxanol 5-10 mg every 2 hours as needed or Tylenol suppositories every 4 hours as needed *Wound Care: Not applicable *Expected Signs/Symptoms: No new symptoms expected; slowly progressive level of consciousness likely over the next 1-2 weeks *Notify Physician if: Follow recommendations of hospice staff *During Business Hours Contact: Notify hospice staff of any concerns-they will contact physician if needed *After Business Hours Contact: As above *Pending Lab/Results: No Pending Lab - Referrals/Follow Up - Patient Handouts Patient Handouts: Sepsis (GEN), Pneumonia (GEN) - Dismissal Complete Discharge Instructions are:: Complete Physician Narrative - Narrative Attestation Narrative: Date: 02/07/18 Time: 8205
== END 2018-02-07 15:23 | disposition hospice, home (50) | DRG 871 ==
LOC: ED 16:20 → SUATTDRO 19:43 → MED 19:43
PROVIDERS: ADMIT Internal Medicine; ATTEND Internal Medicine